=== PATIENT | female | born 1960 | race Caucasian/White ===

== ENCOUNTER 2023-12-11 10:08 | Emergency (ER) | payer SELFPAY ==
[2023-12-11 10:11] VITALS: BP 146/71; PULSE 74; RESP 20; TEMP 36.6; O2SAT 91; BMI 50.4
--- NOTE | 2023-12-11 10:24 | W.ED.WOUNDLC ---
HPI - Wound/Laceration General: Chief Complaint: Wound/Laceration Stated Complaint: left leg lac Time Seen by Provider: 12/11/23 10:09 History of Present Illness: This patient is a 63-year-old white female who presents to the emergency department after sustaining a laceration to her left benavidez. Patient states she bumped this on a TV stand this morning. She is on Eliquis. The wound did bleed quite a bit but has stopped now. No other injuries. Related Data Home Medications Medication Instructions Recorded Confirmed albuterol sulfate 90 mcg/actuation 1 puff inhalation Q4H PRN copd 12/11/23 12/11/23 aerosol inhaler apixaban 2.5 mg tablet (Eliquis) 2.5 mg PO BID 12/11/23 12/11/23 dulaglutide 4.5 mg/0.5 mL 4.5 mg SUBCUT Q7D 12/11/23 12/11/23 subcutaneous pen injector (Rochelle) duloxetine 60 mg capsule,delayed 100 mg PO DAILY 12/11/23 12/11/23 release sprinkle fluticasone furoate 100 1 inh inhalation DAILY 12/11/23 12/11/23 mcg-vilanterol 25 mcg/dose inhalation powder (Breo Ellipta) furosemide 20 mg tablet 20 mg PO DAILY 12/11/23 12/11/23 lisdexamfetamine 50 mg capsule 50 mg PO DAILY 12/11/23 12/11/23 (Vyvanse) losartan 100 mg tablet 100 mg PO DAILY 12/11/23 12/11/23 morphine 15 mg immediate release 15 mg PO TID PRN Pain 12/11/23 12/11/23 tablet omeprazole 40 mg capsule,delayed 40 mg PO DAILY 12/11/23 12/11/23 release pramipexole 1 mg tablet 1.5 mg PO DAILY 12/11/23 12/11/23 rosuvastatin 10 mg tablet 10 mg PO DAILY 12/11/23 12/11/23 tirzepatide 10 mg/0.5 mL 10 mg SUBCUT Q7D 12/11/23 12/11/23 subcutaneous pen injector (Sarahi) topiramate 100 mg tablet 100 mg PO DAILY 12/11/23 12/11/23 Review of Systems General: Reports: 10 or more systems reviewed and unremarkable except in HPI and below Skin/Breast: Reports: other (Laceration left benavidez) Physical Exam Const: COMMON NORMALS: no acute distress, patient oriented x3 and no limitations GENERAL APPEARANCE: cooperative and comfortable HENMT: COMMON NORMALS: normocephalic, atraumatic, Normal nasal mucous membranes and turbinates present, moist oral mucous membranes and oropharynx normal HEAD & SCALP: normal to inspection, normocephalic and atraumatic FACE & SINUS: normal facial exam NOSE: Normal nasal mucous membranes and turbinates present Eye: COMMON NORMALS: Equal, round and reactive pupils present, EOMs intact bilaterally and conjunctivae normal GENERAL EYE: appearance normal, both eyes and all related structures CONJUNCTIVA: Yes conjunctivae normal PUPIL: Yes Equal, round and reactive pupils present Neck/C-Spine: COMMON NORMALS: supple and no JVD Chest: COMMONS NORMALS: normal inspection of the chest Resp: COMMON NORMALS: normal respiratory effort and clear to auscultation bilaterally AUSCULTATION: clear to auscultation bilaterally Cardio: COMMON NORMALS: no JVD, regular rate, regular rhythm, No gallops present (Cardio), No murmurs present (Cardio) and No rub (Cardio) RATE: regular rate RHYTHM: regular rhythm GI: COMMON NORMALS: Normal to inspection, nondistended, normoactive bowel sounds present, Soft to palpation and non-tender AUSCULTATION: Yes normoactive bowel sounds PALPATION: Yes Soft to palpation : COMMON NORMALS: Yes no CVA tenderness BLADDER/KIDNEY EXAM: Yes no CVA tenderness Back/Pelvis: COMMON NORMALS: no CVA tenderness and thoracic and lumbar spine normal to inspection Extremity: COMMON NORMALS: normal to inspection Neuro: COMMON NORMALS: patient oriented x3 and CN's II-XII intact bilaterally Psych: COMMON NORMALS: mental status grossly normal, Normal thought process present and cooperative THOUGHT PROCESS: Normal thought process present Skin: COMMON NORMALS: no rashes or lesions noted, turgor normal and no jaundice GENERAL SKIN EXAM: no rashes or lesions noted and turgor normal TRAUMA: laceration (Approximately 3 cm laceration mid left benavidez.) Procedures Laceration Laceration 1: Site: lower extremity (Left benavidez) Size (cm): 3 Description: linear Depth: simple, single layer Local Anesthetic: lidocaine 1% Amount of anesthesia used (mL): 5 Pre-repair: wound explored and irrigated extensively Skin layer closed with: nylon Size (cm): other (2-0) Number of sutures: 1 Technique: running Course Vital Signs: Vital signs: Vital Signs Temperature 97.9 F 12/11/23 10:11 Pulse Rate 74 12/11/23 10:11 Respiratory Rate 20 H 12/11/23 10:11 Blood Pressure 146/71 12/11/23 10:11 Pulse Oximetry 91 12/11/23 10:11 MDM - Wound/Laceration Medical Decision Making Patient had developed some cramping in the left calf during the procedure. We tried to stretch that out but she continued to have pain so we did administer morphine. The wound was cleaned and dressed with antibiotic ointment by nursing staff. Patient states she is on a cephalosporin antibiotic currently. She was discharged in stable condition instructed to follow-up with her primary care physician in 10 days for recheck and suture removal. No radiology studies performed this visit Discharge Plan Discharge Patient Disposition: Home Clinical Impression: Laceration Condition: Stable Prescriptions: No Action pramipexole 1 mg Tablet 1.5 mg PO DAILY omeprazole 40 mg Capsule,Delayed Release(Dr/Ec) 40 mg PO DAILY furosemide 20 mg Tablet 20 mg PO DAILY morphine 15 mg Tablet 15 mg PO TID PRN (Reason: Pain) topiramate 100 mg Tablet 100 mg PO DAILY losartan 100 mg Tablet 100 mg PO DAILY rosuvastatin 10 mg Tablet 10 mg PO DAILY lisdexamfetamine [Vyvanse] 50 mg Capsule 50 mg PO DAILY duloxetine 60 mg Capsule, Delayed Rel Sprinkle 100 mg PO DAILY Trulicity 4.5 mg/0.5 mL Pen Injector 4.5 mg SUBCUT Q7D Mounjaro 10 mg/0.5 mL Pen Injector 10 mg SUBCUT Q7D Discharge Orders: Discharge ED (Routine); Ordered 12/11/23 Ordered By: Salvador Reyes Patient Instructions: Laceration Activity Restrictions/Additional Instructions: Follow-up with your primary care physician in 10 days for recheck and suture removal. Coding Level of Care Code ED Airport Duty Manager for Juan Manuel Horne
--- NOTE | 2023-12-11 10:31 | PC.PHAR ---
Addendum entered by Vida Peck 12/11/23 11:04: Verified with [facility] [phone], their current med list added to pt's medication list. Several medications ready at [facility] and all pts medications have been transferred over to [facility]. Original Note: no such thing as Eliquis 250mg-dosage is 2.5mg, 5mg or 10mg.
[2023-12-11] MEDS: morphine 4 mg/mL SDV 1 mL 8 MG IM (11:43)
[2023-12-11] MEDS: ondansetron 4 MG Tablet PO (11:43)
[2023-12-11 12:07] VITALS: BP 141/68; PULSE 75; O2SAT 98
== END 2023-12-11 12:08 | disposition home or self-care (01) ==
PROVIDERS: Emergency Provider Emergency Medicine
DX: S81.812A Laceration without foreign body, left lower leg, initial encounter (principal); X58.XXXA Exposure to other specified factors, initial encounter; Z79.85 Long-term (current) use of injectable non-insulin antidiabetic drugs
CPT/HCPCS: 12002; 96372; 99284; J2270; Q0162

== ENCOUNTER 2024-01-03 13:39 | Emergency (ER) | payer MEDICARE, MEDICAID, SELFPAY ==
[2024-01-03 14:13] VITALS: BP 190/81; PULSE 81; RESP 18; TEMP 36.7; O2SAT 97; BMI 49.6
--- NOTE | 2024-01-03 14:50 | ED_ITS ---
HPI - Back Pain/Injury General: Chief Complaint: Back Pain/Injury Stated Complaint: left knee/low back pain Time Seen by Provider: 01/03/24 14:32 Source: patient Mode of arrival: ambulatory Limitations: no limitations History of Present Illness: Patient is a 63-year-old female presents to ED today requesting a refill of chronic pain medication. She states she is having pain everywhere . States she suffers from chronic lower back pain as well as pain in her left leg from multiple previous surgeries. Patient states she was under the care of a airbrush painter in [place]. She states she recently moved to the area in October. She states she has tried to get a primary care appointment but the soonest they can get her in was at the end of January. She does have an appointment scheduled with Dr. Hanna then. She states she has also had a referral placed to [place] [facility]. She states she was at their office today as she was trying to get all of her records faxed to them. They told her it would take a few weeks to get back with her and to schedule her for an appointment. Patient states she is on [facility] walk-in clinic a few weeks ago for pain management refill. She states she is frustrated as the provider told her they were going to give her 30 tablets of 15mg morphine with directions for 2 a day so should last her 2 weeks. She states when she got to the pharmacy there were only 14 tablets to fill. She states she has been taking one tablet daily but now she is out. elicited complaint: other (chronic pain) Onset (ago): year(s) Timing: constant Severity: severe Similar Symptoms Previously: Yes Radiation: none Relieving factors: other (her chronic pain medication) Associated symptoms: Reports no associated symptoms; Deny abdominal pain or vomiting Work related injury: No Related Data Home Medications Medication Instructions Recorded Confirmed albuterol sulfate 90 mcg/actuation 1 puff inhalation Q4H PRN copd 12/11/23 01/03/24 aerosol inhaler apixaban 2.5 mg tablet (Eliquis) 2.5 mg PO BID 12/11/23 01/03/24 dulaglutide 4.5 mg/0.5 mL 4.5 mg SUBCUT Q7D 12/11/23 01/03/24 subcutaneous pen injector ([facility]) duloxetine 60 mg capsule,delayed 100 mg PO DAILY 12/11/23 01/03/24 release sprinkle fluticasone furoate 100 1 inh inhalation DAILY 12/11/23 01/03/24 mcg-vilanterol 25 mcg/dose inhalation powder (Breo Ellipta) furosemide 20 mg tablet 20 mg PO DAILY 12/11/23 01/03/24 lisdexamfetamine 50 mg capsule 50 mg PO DAILY 12/11/23 01/03/24 (Vyvanse) losartan 100 mg tablet 100 mg PO DAILY 12/11/23 01/03/24 omeprazole 40 mg capsule,delayed 40 mg PO DAILY 12/11/23 01/03/24 release pramipexole 1 mg tablet 1.5 mg PO DAILY 12/11/23 01/03/24 rosuvastatin 10 mg tablet 10 mg PO DAILY 12/11/23 01/03/24 tirzepatide 10 mg/0.5 mL 10 mg SUBCUT Q7D 12/11/23 01/03/24 subcutaneous pen injector (Sarahi) topiramate 100 mg tablet 100 mg PO DAILY 12/11/23 01/03/24 Previous Rx's Medication Instructions Recorded DME: Walker #1 ea 12/16/23 morphine 15 mg immediate release 15 mg PO DAILY PRN Pain #10 tabs 01/03/24 tablet Allergies Allergy/AdvReac Type Severity Reaction Status Date / Time acetaminophen [From Tylenol] Allergy Unknown Verified 01/03/24 14:24 divalproex sodium Allergy Unknown Verified 01/03/24 14:24 [From Depakote] oxycodone Allergy Unknown Verified 01/03/24 14:24 Sulfa (Sulfonamide Allergy ALGY-Hives Verified 01/03/24 14:24 Antibiotics) tobramycin [From Tobrex] Allergy Unknown Verified 01/03/24 14:24 Review of Systems Card: Denies: chest pain Resp: Denies: dyspnea GI: Denies: abdominal pain or vomiting Musc: Reports: back pain (chronic) and joint pain (chronic) Neuro: Denies: headache(s) PFSH ED PFSH: Social History Smoking and tobacco/nicotine status: never used tobacco/nicotine Physical Exam Const: COMMON NORMALS: no acute distress, patient oriented x3, no limitations and alert GENERAL APPEARANCE: cooperative NUTRITIONAL APPEARANCE: obese morbidly obese Resp: COMMON NORMALS: normal respiratory effort and clear to auscultation bilaterally AUSCULTATION: clear to auscultation bilaterally Cardio: COMMON NORMALS: regular rate and regular rhythm RATE: regular rate RHYTHM: regular rhythm Neuro: COMMON NORMALS: patient oriented x3 SENSORIUM/ORIENTATION: Yes alert Course Vital Signs: Vital signs: Vital Signs Temperature 98.1 F 01/03/24 14:13 Pulse Rate 74 01/03/24 15:02 Respiratory Rate 26 H 01/03/24 14:57 Blood Pressure 125/81 01/03/24 15:02 Pulse Oximetry 91 01/03/24 15:02 Oxygen Delivery Me thod Room Air 01/03/24 14:13 MDM - Back Pain/Injury Medical Decision Making Patient has no new physical complaints at this time. She is requesting refill of her chronic opiate pain medication. I did review Dr. Medina's note and it did state he was going to prescribe her 30 tablets of her 15mg morphine. I did check with our pharmacy staff who verified she only got 14 tablets consistent with the history she provided today. She was able to make these 14 tablets last from 12/14 until today 01/02. I told her we will give her a small amount of medications-enough to continue to take one daily x 10 days and that should give her time to continue to follow up with [facility] to see if she can get an appointment with them or even get on a cancellation list with Dr. Hanna's office. Dr. Medina's note also had instructions for re-evaluation/possible refills. Told her we would not refill additional pain medication from the emergency department. Case discussed with Dr. Moon who agrees with care plan and signed prescription. Medical Records I reviewed the patient's medical records. No radiology studies performed this visit Discharge Plan Discharge Patient Disposition: Home Clinical Impression: Opioid use, Chronic pain Condition: Stable Prescriptions: Changed morphine 15 mg tablet 15 mg PO DAILY PRN (Reason: Pain) Qty: 10 0RF No Action (DME) DME: Walker Unit See Rx Instructions .Route Qty: 1 0RF Rx Instructions: As directed pramipexole 1 mg Tablet 1.5 mg PO DAILY omeprazole 40 mg Capsule,Delayed Release(Dr/Ec) 40 mg PO DAILY furosemide 20 mg Tablet 20 mg PO DAILY topiramate 100 mg Tablet 100 mg PO DAILY losartan 100 mg Tablet 100 mg PO DAILY rosuvastatin 10 mg Tablet 10 mg PO DAILY lisdexamfetamine [Vyvanse] 50 mg Capsule 50 mg PO DAILY duloxetine 60 mg Capsule, Delayed Rel Sprinkle 100 mg PO DAILY Trulicity 4.5 mg/0.5 mL Pen Injector 4.5 mg SUBCUT Q7D Mounjaro 10 mg/0.5 mL Pen Injector 10 mg SUBCUT Q7D albuterol sulfate [ProAir HFA] 90 mcg/actuation Hfa Aerosol Inhaler 1 puff INHALATION Q4H PRN (Reason: copd) Eliquis 2.5 mg Tablet 2.5 mg PO BID fluticasone furoate-vilanterol [Breo Ellipta] 100-25 mcg/dose Blister With Device 1 inh INHALATION DAILY Discharge Orders: Discharge ED (Routine); Ordered 01/03/24 Ordered By: Nissa Garcia Referrals: Cindy Zhao MD [Primary Care Provider] - Patient Instructions: Opioid Safety, Pain Management Activity Restrictions/Additional Instructions: As we discussed, I would contact Dr. Hanna's office and try to get on a cancellation list for sooner appointment. Also continue to follow-up with [place] [facility] to try to obtain an appointment. No further pain medications will be provided through the emergency department. Coding Level of Care Code ED Manufacturing Lead for Juan Manuel Horne
[2024-01-03 14:57] VITALS: RESP 26; O2SAT 99
[2024-01-03] MEDS: morphine 4 mg/mL SDV 1 mL IM (14:57)
[2024-01-03 15:02] VITALS: BP 125/81; PULSE 74; O2SAT 91
== END 2024-01-03 15:03 | disposition home or self-care (01) ==
PROVIDERS: Emergency Provider Physician Assistant; PCP Family Medicine
DX: F11.90 Opioid use, unspecified, uncomplicated (principal); Z79.01 Long term (current) use of anticoagulants
CPT/HCPCS: 96372; 99284; J2270

== ENCOUNTER 2024-01-05 14:12 | Emergency (ER) | payer MEDICARE, MEDICAID, SELFPAY ==
--- NOTE | 2024-01-05 14:13 | XRR_ITS ---
PROCEDURE INFORMATION: Exam: XR Left Shoulder Exam date and time: 01/05/2024 2:15 PM Age: 63 years old Clinical indication: Pain; Shoulder; Left TECHNIQUE: Imaging protocol: Radiologic exam of the left shoulder. Views: 2 or more views. COMPARISON: No relevant prior studies available. FINDINGS: Bones/joints: 2.9 cm widening of the acromioclavicular interval. No acutely displaced fractures. No joint dislocation. No aggressive osseous lesions. Soft tissues: No acute soft tissue findings. No acute findings in the included segments of the chest. XR/XR shoulder LT min 2V* 02999 IMPRESSION: 2.9 cm widening of the acromioclavicular interval. 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 Differential would include sequela of prior acromioclavicular injury.
--- NOTE | 2024-01-05 14:16 | W.ED.UPPEXIN ---
HPI - Extremity Injury (Upper) General: Chief Complaint: Extremity Injury, Upper Stated Complaint: left shoulder pain Time Seen by Provider: 01/05/24 14:13 Source: patient and EMS Mode of arrival: EMS Limitations: no limitations History of Present Illness: 63-year-old female who states that she had shoulder door prior arrival and fell like she may have dislocated her left shoulder she states she has had multiple shoulder dislocations in the past have shoulder pain she rates a 8 out of 10 received fentanyl and route. Denies pain elsewhere Associated symptoms: Denies neck pain Related Data Home Medications Medication Instructions Recorded Confirmed albuterol sulfate 90 mcg/actuation 1 puff inhalation Q4H PRN copd 12/11/23 01/03/24 aerosol inhaler apixaban 2.5 mg tablet (Eliquis) 2.5 mg PO BID 12/11/23 01/03/24 dulaglutide 4.5 mg/0.5 mL 4.5 mg SUBCUT Q7D 12/11/23 01/03/24 subcutaneous pen injector (Rochelle) duloxetine 60 mg capsule,delayed 100 mg PO DAILY 12/11/23 01/03/24 release sprinkle fluticasone furoate 100 1 inh inhalation DAILY 12/11/23 01/03/24 mcg-vilanterol 25 mcg/dose inhalation powder (Breo Ellipta) furosemide 20 mg tablet 20 mg PO DAILY 12/11/23 01/03/24 lisdexamfetamine 50 mg capsule 50 mg PO DAILY 12/11/23 01/03/24 (Vyvanse) losartan 100 mg tablet 100 mg PO DAILY 12/11/23 01/03/24 omeprazole 40 mg capsule,delayed 40 mg PO DAILY 12/11/23 01/03/24 release pramipexole 1 mg tablet 1.5 mg PO DAILY 12/11/23 01/03/24 rosuvastatin 10 mg tablet 10 mg PO DAILY 12/11/23 01/03/24 tirzepatide 10 mg/0.5 mL 10 mg SUBCUT Q7D 12/11/23 01/03/24 subcutaneous pen injector (Sarahi) topiramate 100 mg tablet 100 mg PO DAILY 12/11/23 01/03/24 Previous Rx's Medication Instructions Recorded DME: Walker #1 ea 12/16/23 morphine 15 mg immediate release 15 mg PO DAILY PRN Pain #10 tabs 01/03/24 tablet Allergies Allergy/AdvReac Type Severity Reaction Status Date / Time acetaminophen [From Tylenol] Allergy Unknown Verified 01/05/24 14:22 divalproex sodium Allergy Unknown Verified 01/05/24 14:22 [From Depakote] oxycodone Allergy Unknown Verified 01/05/24 14:22 tobramycin [From Tobrex] Allergy Unknown Verified 01/05/24 14:22 Review of Systems Const: Denies: fever(s), chills, body aches or change in appetite Card: Denies: chest pain Resp: Denies: dyspnea GI: Denies: abdominal pain, nausea, vomiting or diarrhea Musc: Reports: extremity pain; Denies: neck pain or back pain Skin/Breast: Denies: rash Neuro: Denies: headache(s) PFSH ED PFSH: Social History Smoking and tobacco/nicotine status: never used tobacco/nicotine Physical Exam Const: COMMON NORMALS: no acute distress, patient oriented x3 and healthy appearing HENMT: COMMON NORMALS: normocephalic and atraumatic HEAD & SCALP: normocephalic and atraumatic Eye: COMMON NORMALS: conjunctivae normal CONJUNCTIVA: Yes conjunctivae normal Neck/C-Spine: COMMON NORMALS: full ROM and supple Chest: COMMONS NORMALS: normal inspection of the chest Resp: COMMON NORMALS: normal respiratory effort Extremity: NARRATIVE EXTREMITY EXAM: Tenderness over left shoulder some pain with range of motion Neuro: COMMON NORMALS: patient oriented x3, moves all extremities and no focal motor deficits Psych: COMMON NORMALS: mental status grossly normal, Normal thought process present and cooperative THOUGHT PROCESS: Normal thought process present Skin: COMMON NORMALS: no rashes or lesions noted and no wounds GENERAL SKIN EXAM: no rashes or lesions noted Course Vital Signs: Vital signs: Vital Signs Temperature 97.7 F 01/05/24 14:17 Pulse Rate 77 01/05/24 14:17 Respiratory Rate 18 01/05/24 14:21 Blood Pressure 176/100 01/05/24 14:21 Pulse Oximetry 96 01/05/24 14:21 Oxygen Delivery Me thod Room Air 01/05/24 14:17 MDM - Extremity Injury (Upper) Medical Decision Making Patient presents with left shoulder sprain x-ray shows no fracture or dislocation we will get her follow-up with orthopedics she is stable for discharge return if worsening. Medical Records I reviewed the patient's medical records. Lab Data Radiology Impressions Shoulder X-Ray 01/05/24 14:13 IMPRESSION: 2.9 cm widening of the acromioclavicular interval. 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 Differential would include sequela of prior acromioclavicular injury. All radiology interpretation(s) finalized by discharge Discharge Plan Discharge Patient Disposition: Home Clinical Impression: Sprain of left shoulder, Fracture of wrist Condition: Stable Prescriptions: No Action (DME) DME: Walker Unit See Rx Instructions .Route Qty: 1 0RF Rx Instructions: As directed morphine 15 mg tablet 15 mg PO DAILY PRN (Reason: Pain) Qty: 10 0RF pramipexole 1 mg Tablet 1.5 mg PO DAILY omeprazole 40 mg Capsule,Delayed Release(Dr/Ec) 40 mg PO DAILY furosemide 20 mg Tablet 20 mg PO DAILY topiramate 100 mg Tablet 100 mg PO DAILY losartan 100 mg Tablet 100 mg PO DAILY rosuvastatin 10 mg Tablet 10 mg PO DAILY lisdexamfetamine [Vyvanse] 50 mg Capsule 50 mg PO DAILY duloxetine 60 mg Capsule, Delayed Rel Sprinkle 100 mg PO DAILY Trulicity 4.5 mg/0.5 mL Pen Injector 4.5 mg SUBCUT Q7D Mounjaro 10 mg/0.5 mL Pen Injector 10 mg SUBCUT Q7D albuterol sulfate [ProAir HFA] 90 mcg/actuation Hfa Aerosol Inhaler 1 puff INHALATION Q4H PRN (Reason: copd) Eliquis 2.5 mg Tablet 2.5 mg PO BID fluticasone furoate-vilanterol [Breo Ellipta] 100-25 mcg/dose Blister With Device 1 inh INHALATION DAILY Discharge Orders: Discharge ED (Routine); Ordered 01/05/24 Ordered By: Rimma Moon Referrals: Vahid Zamarripa DO [Physician] - 4-7 days Cindy Zhao MD [Primary Care Provider] - Discharge Diet: Advance as tolerated Discharge Activity: Resume usual activity Patient Instructions: Shoulder Sprain (ED) Coding Level of Care Code ED Stitchdown Thread Laster for Juan Manuel Horne
[2024-01-05 14:17] VITALS: BP 172/88; PULSE 77; RESP 18; TEMP 36.5; O2SAT 97
[2024-01-05 14:21] VITALS: BP 176/100; RESP 18; O2SAT 96
[2024-01-05 14:54] VITALS: BP 173/101; PULSE 80; RESP 18; O2SAT 95
--- NOTE | 2024-01-05 21:50 | DCPLANNER ---
messaged ortho for er f/u
== END 2024-01-05 14:55 | disposition home or self-care (01) ==
PROVIDERS: Emergency Provider Emergency Medicine; PCP Family Medicine
DX: S43.402A Unspecified sprain of left shoulder joint, initial encounter (principal); S62.109A Fracture of unspecified carpal bone, unspecified wrist, initial encounter for closed fracture; X58.XXXA Exposure to other specified factors, initial encounter
CPT/HCPCS: 73030; 99283

== ENCOUNTER → 2024-02-23 10:38 | Outpatient (BNVA) | payer OTHER, MEDICARE, MEDICAID, SELFPAY | PROVIDERS: PCP Family Medicine; Visit Provider Family Medicine | DX: L97.929 Non-pressure chronic ulcer of unspecified part of left lower leg with unspecified severity (principal); E11.9 Type 2 diabetes mellitus without complications; I10 Essential (primary) hypertension; E78.00 Pure hypercholesterolemia, unspecified; Z79.01 Long term (current) use of anticoagulants; K21.00 Gastro-esophageal reflux disease with esophagitis, without bleeding; M79.7 Fibromyalgia; J44.9 Chronic obstructive pulmonary disease, unspecified; R30.0 Dysuria; F31.62 Bipolar disorder, current episode mixed, moderate; F90.2 Attention-deficit hyperactivity disorder, combined type; Z79.4 Long term (current) use of insulin; Z86.718 Personal history of other venous thrombosis and embolism | CPT/HCPCS: 80053; 80061; 82043; 83036; 84443; 85025; 87086 ==

== ENCOUNTER → 2024-03-06 08:42 | Outpatient (BNVA) | payer MEDICARE, OTHER, MEDICAID, SELFPAY | PROVIDERS: PCP Family Medicine; Visit Provider Thoracic Surgery (Cardiothoracic Vascular Surgery) | DX: I96 Gangrene, not elsewhere classified (principal); S81.802A Unspecified open wound, left lower leg, initial encounter; W22.8XXA Striking against or struck by other objects, initial encounter | CPT/HCPCS: 11042; 99203; A6212 ==

== ENCOUNTER → 2024-05-17 12:05 | Outpatient (BNVA) | payer MEDICARE, MEDICAID, SELFPAY | PROVIDERS: PCP Family Medicine; Visit Provider Family Medicine | DX: Z79.4 Long term (current) use of insulin (principal); E11.65 Type 2 diabetes mellitus with hyperglycemia | CPT/HCPCS: 83036 ==

== ENCOUNTER 2024-06-24 05:19 | Emergency (ER) | payer OTHER, MEDICAID, SELFPAY ==
[2024-06-24 05:24] VITALS: BP 123/68; PULSE 75; RESP 16; TEMP 36.3; O2SAT 94; BMI 49.1
--- NOTE | 2024-06-24 06:10 | W.ED.EXTPRO ---
HPI - Extremity Problem General: Chief complaint: Extremity Problem,Nontraumatic Stated complaint: left leg hot swollen Time Seen by Provider: 06/24/24 05:46 Source: patient Mode of arrival: ambulatory Limitations: no limitations History of Present Illness: 54-year-old female states she noticed an abscess to her left knee she states it has been painful slightly warm to touch she denies any fevers denies any drainage denies any worsening provide factors Associated symptoms: Deny chest pain, fever(s) or rash Related Data Home Medications ?Medication ?Instructions ?Recorded ?Confirmed albuterol sulfate 90 mcg/actuation 1 puff inhalation Q4H PRN copd 12/11/23 05/17/24 aerosol inhaler furosemide 20 mg tablet 20 mg PO DAILY 12/11/23 05/17/24 morphine 15 mg immediate release 15 mg PO TID Pain 02/23/24 05/17/24 tablet Previous Rx's ?Medication ?Instructions ?Recorded DME: Ramon #1 ea 12/16/23 apixaban 2.5 mg tablet (Eliquis) 2.5 mg PO BID #180 tabs 02/23/24 duloxetine 60 mg capsule,delayed 120 mg (2 x 60 mg) PO DAILY #180 02/23/24 release sprinkle caps fluticasone furoate 100 1 inh inhalation DAILY #180 ea 02/23/24 mcg-vilanterol 25 mcg/dose inhalation powder (Breo Ellipta) insulin glargine 100 unit/mL (3 36 unit (0.36 mL) SUBCUT DAILY #45 02/23/24 mL) subcutaneous pen (Basaglar mL KwikPen U-100 Insulin) Held on 05/17/24. Instructions: Doctor's Order losartan 100 mg tablet 100 mg PO DAILY #90 tabs 02/23/24 omeprazole 40 mg capsule,delayed 40 mg PO DAILY #90 caps 02/23/24 release pramipexole 1 mg tablet 1.5 mg (1.5 x 1 mg) PO DAILY #135 02/23/24 tabs rosuvastatin 10 mg tablet 10 mg PO DAILY #90 tabs 02/23/24 topiramate 100 mg tablet 100 mg PO DAILY #90 tabs 02/23/24 tirzepatide 15 mg/0.5 mL 15 mg (0.5 mL) SUBCUT .qw #2 mL 05/17/24 subcutaneous pen injector (Mounrobbro) blood-glucose sensor (Dexcom G7 #9 ea 05/22/24 Sensor device) lisdexamfetamine 50 mg capsule 50 mg PO DAILY 30 days #30 caps 06/15/24 (Vyvanse) pen needle, diabetic 31 gauge x #100 ea 06/20/24 5/16 sulfamethoxazole 800 1 tab PO BID 10 days #20 tabs 06/24/24 mg-trimethoprim 160 mg tablet (Bactrim DS) Allergies Allergy/AdvReac Type Severity Reaction Status Date / Time acetaminophen (From Tylenol) Allergy Unknown Verified 05/17/24 11:32 divalproex sodium (From Allergy Unknown Verified 05/17/24 11:32 Depakote) lamotrigine Allergy ALGY-Bliste Verified 06/24/24 05:32 r oxycodone Allergy Unknown Verified 05/17/24 11:32 tobramycin (From Tobrex) Allergy Unknown Verified 05/17/24 11:32 Review of Systems Const: Denies: fever(s), chills, body aches or change in appetite ENMT: Denies: throat pain or dental pain Card: Denies: chest pain Resp: Denies: dyspnea GI: Denies: abdominal pain, nausea, vomiting or diarrhea Musc: Denies: neck pain or back pain Skin/Breast: Denies: rash Neuro: Denies: headache(s) PFSH ED PFSH: Medical History Screening for lung cancer [place]; next due one year Osteoarthritis 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 Neuropathy ADHD (attention deficit hyperactivity disorder) History of recurrent deep vein thrombosis has hx of 2 Chronic anticoagulation eliquis for recurrent DVTs Chronic ulcer of left leg GERD with esophagitis COPD (chronic obstructive pulmonary disease) Hypertension Hypercholesterolemia Bipolar disorder Nicotine dependence, cigarettes, uncomplicated Type 2 diabetes mellitus Fibromyalgia Surgical History Hx of vein stripping Left leg vein stripped and glued History of shoulder surgery left Hx of colonoscopy History of knee replacement L knee has been replaced 2 times 01/25--got infected and subsequently had multiple knee surgeries and total of 3 replacements H/O sinus surgery x2 Hx of hysterectomy age 37; with RSO and few years later had LSO--no cancer; H/O tubal ligation Family History Father No problems noted. Mother Cancer Diabetes mellitus, type 2 Social History Smoking and tobacco/nicotine status: current every day tobacco/nicotine user cigarettes Packs smoked per day: 0.5 Alcohol intake: current Alcohol intake frequency: holidays/special occasions only Alcohol type: other Substance/Drug Use: current Substance/Drug use frequency: few times a month Household members: none Marital status: Number of children: 4 Highest education level completed: GED or Equivalent Previous occupational history: worked at [employer], [employer], other jobs; disability for fibromyalgia Physical Exam Const: COMMON NORMALS: no acute distress, patient oriented x3 and healthy appearing HENMT: COMMON NORMALS: normocephalic and atraumatic HEAD & SCALP: normocephalic and atraumatic Neck/C-Spine: COMMON NORMALS: full ROM and supple Chest: COMMONS NORMALS: normal inspection of the chest Resp: COMMON NORMALS: normal respiratory effort Cardio: COMMON NORMALS: regular rate RATE: regular rate Extremity: NARRATIVE EXTREMITY EXAM: 3cm abscess to left knee no warmth to knee no signs of septic joint Neuro: COMMON NORMALS: patient oriented x3, moves all extremities and no focal motor deficits Psych: COMMON NORMALS: mental status grossly normal, Normal thought process present and cooperative THOUGHT PROCESS: Normal thought process present Skin: COMMON NORMALS: no rashes or lesions noted and no wounds GENERAL SKIN EXAM: no rashes or lesions noted Procedures Abscess I/D Site: lower extremity Side (if applicable): left Local Anesthetic: lidocaine 1% Amount of anesthesia used (mL): 6 Technique: incised with #11 blade Irrigation: No Course Vital Signs: Vital signs: Vital Signs Temperature 97.4 F L 06/24/24 05:24 Pulse Rate 75 06/24/24 05:24 Respiratory Rate 16 06/24/24 05:24 Blood Pressure 123/68 06/24/24 05:24 Pulse Oximetry 94 06/24/24 05:24 Oxygen Delivery Me thod Room Air 06/24/24 05:24 MDM - Extremity (Nontraumatic) Medical Decision Making Patient presents with abscess to her left knee did incise and drain the abscess no signs of septic joint will start on Bactrim follow-up PCP return for worsening No radiology studies performed this visit Discharge Plan Discharge Patient Disposition: Home Clinical Impression: Abscess Condition: Stable Prescriptions: New sulfamethoxazole-trimethoprim [Bactrim DS] 800-160 mg tablet 1 tab PO BID 10 Days Qty: 20 0RF No Action morphine 15 mg tablet 15 mg PO TID fluticasone furoate-vilanterol [Breo Ellipta] 100-25 mcg/dose blister with device 1 inh INHALATION DAILY Qty: 180 1RF duloxetine 60 mg capsule, delayed rel sprinkle 120 mg PO DAILY Qty: 180 1RF topiramate 100 mg tablet 100 mg PO DAILY Qty: 90 1RF insulin glargine [Basaglar KwikPen U-100 Insulin] 100 unit/mL (3 mL) insulin pen 36 unit SUBCUT DAILY Qty: 45 1RF Eliquis 2.5 mg tablet 2.5 mg PO BID Qty: 180 1RF losartan 100 mg tablet 100 mg PO DAILY Qty: 90 1RF omeprazole 40 mg capsule,delayed release(DR/EC) 40 mg PO DAILY Qty: 90 1RF pramipexole 1 mg tablet 1.5 mg PO DAILY Qty: 135 1RF rosuvastatin 10 mg tablet 10 mg PO DAILY Qty: 90 1RF Mounjaro 15 mg/0.5 mL pen injector 15 mg SUBCUT .qw Qty: 2 5RF (DME) DME: [facility] See Rx Instructions .Route Qty: 1 0RF Rx Instructions: As directed (DME) Dexcom G7 Sensor Device See Rx Instructions .Route Qty: 9 3RF Rx Instructions: As directed lisdexamfetamine [Vyvanse] 50 mg capsule 50 mg PO DAILY 30 Days Qty: 30 0RF (DME) pen needle, diabetic 31 gauge x 5/16 needle See Rx Instructions .ROUTE .COMPLEX Qty: 100 3RF Dose Instruction: USE DIRECTED Rx Instructions: USE DIRECTED furosemide 20 mg Tablet 20 mg PO DAILY albuterol sulfate [ProAir HFA] 90 mcg/actuation Hfa Aerosol Inhaler 1 puff INHALATION Q4H PRN (Reason: copd) Discharge Orders: Discharge ED (Routine); Ordered 06/24/24 Ordered By: Rimma Moon Referrals: Cindy Zhao MD [Primary Care Provider, Family Practice] Discharge Diet: Advance as tolerated Discharge Activity: Resume usual activity Patient Instructions: Abscess (ED) Print Language: Italian Coding Level of Care Code ED Coffee [employer]er for Juan Manuel Horne
== END 2024-06-24 06:51 | disposition home or self-care (01) ==
PROVIDERS: Emergency Provider Emergency Medicine; PCP Family Medicine
DX: L02.416 Cutaneous abscess of left lower limb (principal); F17.210 Nicotine dependence, cigarettes, uncomplicated; J44.9 Chronic obstructive pulmonary disease, unspecified; I10 Essential (primary) hypertension; E11.9 Type 2 diabetes mellitus without complications
CPT/HCPCS: 10060; 99283

== ENCOUNTER 2024-07-17 14:17 | Emergency (ER) | payer OTHER, MEDICAID, SELFPAY ==
[2024-07-17 14:21] VITALS: BP 179/99; PULSE 93; RESP 19; TEMP 36.6; O2SAT 93; BMI 50.5
--- NOTE | 2024-07-17 14:52 | W.ED.SKABFB ---
HPI - Skin/Abscess/Foreign Bdy General: Chief complaint: Skin/Abscess/Foreign Body Stated complaint: L leg pain, swelling, discharge Time Seen by Provider: 07/17/24 14:28 Source: patient Mode of arrival: ambulatory Limitations: no limitations History of Present Illness: Patient is a 64-year-old female presents to ED today for concerns of an abscess to her left knee. Patient states abscess was drained here approximately 3 weeks ago. She states she finished a round of Bactrim which did seem to eradicate infection. She states she was doing good until this morning when she felt like it popped back up . She is adamant we attempt repeat incision and drainage today. No systemic symptoms. MD complaint: abscess/boil Onset (ago): hour(s) Severity: mild Relieving factors: none Exacerbating factors: none Context: other (recent I&D to same area) Associated symptoms: Reports no associated symptoms; Deny fever(s) Treatments prior to arrival: none Related Data Home Medications ?Medication ?Instructions ?Recorded ?Confirmed albuterol sulfate 90 mcg/actuation 1 puff inhalation Q4H PRN copd 12/11/23 05/17/24 aerosol inhaler furosemide 20 mg tablet 20 mg PO DAILY 12/11/23 05/17/24 morphine 15 mg immediate release 15 mg PO TID Pain 02/23/24 05/17/24 tablet Previous Rx's ?Medication ?Instructions ?Recorded DME: Ramon #1 ea 12/16/23 apixaban 2.5 mg tablet (Eliquis) 2.5 mg PO BID #180 tabs 02/23/24 duloxetine 60 mg capsule,delayed 120 mg (2 x 60 mg) PO DAILY #180 02/23/24 release sprinkle caps fluticasone furoate 100 1 inh inhalation DAILY #180 ea 02/23/24 mcg-vilanterol 25 mcg/dose inhalation powder (Breo Ellipta) insulin glargine 100 unit/mL (3 36 unit (0.36 mL) SUBCUT DAILY #45 02/23/24 mL) subcutaneous pen (Basaglar mL KwikPen U-100 Insulin) Held on 05/17/24. Instructions: Doctor's Order losartan 100 mg tablet 100 mg PO DAILY #90 tabs 02/23/24 omeprazole 40 mg capsule,delayed 40 mg PO DAILY #90 caps 02/23/24 release pramipexole 1 mg tablet 1.5 mg (1.5 x 1 mg) PO DAILY #135 02/23/24 tabs rosuvastatin 10 mg tablet 10 mg PO DAILY #90 tabs 02/23/24 topiramate 100 mg tablet 100 mg PO DAILY #90 tabs 02/23/24 tirzepatide 15 mg/0.5 mL 15 mg (0.5 mL) SUBCUT .qw #2 mL 05/17/24 subcutaneous pen injector ([employer]) blood-glucose sensor (Codelearn G7 #9 ea 05/22/24 Sensor device) lisdexamfetamine 50 mg capsule 50 mg PO DAILY 30 days #30 caps 06/15/24 (Vyvanse) pen needle, diabetic 31 gauge x #100 ea 06/20/2406/22 clindamycin HCl 300 mg capsule 300 mg PO Q6H 7 days #28 caps 07/17/24 Allergies Allergy/AdvReac Type Severity Reaction Status Date / Time acetaminophen (From Tylenol) Allergy Unknown Verified 05/17/24 11:32 divalproex sodium (From Allergy Unknown Verified 05/17/24 11:32 Depakote) lamotrigine Allergy ALGY-Bliste Verified 06/24/24 05:32 r oxycodone Allergy Unknown Verified 05/17/24 11:32 tobramycin (From Tobrex) Allergy Unknown Verified 05/17/24 11:32 Review of Systems Const: Denies: fever(s) Skin/Breast: Reports: other (knee abscess) PFSH ED PFSH: Medical History Screening for lung cancer [place]; next due one year Osteoarthritis 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 Neuropathy ADHD (attention deficit hyperactivity disorder) History of recurrent deep vein thrombosis has hx of 2 Chronic anticoagulation eliquis for recurrent DVTs Chronic ulcer of left leg GERD with esophagitis COPD (chronic obstructive pulmonary disease) Hypertension Hypercholesterolemia Bipolar disorder Nicotine dependence, cigarettes, uncomplicated Type 2 diabetes mellitus Fibromyalgia Surgical History Hx of vein stripping Left leg vein stripped and glued History of shoulder surgery left Hx of colonoscopy History of knee replacement L knee has been replaced 2 times 01/25--got infected and subsequently had multiple knee surgeries and total of 3 replacements H/O sinus surgery x2 Hx of hysterectomy age 37; with RSO and few years later had LSO--no cancer; H/O tubal ligation Family History Father No problems noted. Mother Cancer Diabetes mellitus, type 2 Social History Smoking and tobacco/nicotine status: current every day tobacco/nicotine user cigarettes Packs smoked per day: 0.5 Alcohol intake: current Alcohol intake frequency: holidays/special occasions only Alcohol type: other Substance/Drug Use: current Substance/Drug use frequency: few times a month Household members: none Marital status: Number of children: 4 Highest education level completed: GED or Equivalent Previous occupational history: worked at [employer], [employer], other jobs; disability for fibromyalgia Physical Exam Const: COMMON NORMALS: no acute distress, no limitations and alert Extremity: GENERAL: Yes normal exam except as noted EXTREMITY IMAGE (FRONT):  1. very small primarily indurated area to superior L knee w/o obvious fluctuance; no streaking or surrounding cellulitis; underlying scar tissue given previous surgical incision to this area Neuro: COMMON NORMALS: moves all extremities, no focal motor deficits and no sensory deficits noted SENSORIUM/ORIENTATION: Yes alert Course Vital Signs: Vital signs: Vital Signs Temperature 98 F 07/17/24 14:21 Pulse Rate 93 07/17/24 14:21 Respiratory Rate 19 H 07/17/24 14:21 Blood Pressure 179/99 07/17/24 14:21 Pulse Oximetry 93 07/17/24 14:21 Oxygen Delivery Me thod Room Air 07/17/24 14:21 MDM - Skin/Abscess/Foreign Bdy Medicial Decision Making Patient was adamant we attempt repeat incision and drainage. Clinically I did not appreciate any obvious fluctuance to the area. Did go ahead and make very small alex to the area and probed-expressed about 3 drops of purulent material-possibly enough for a culture. Patient seemed satisfied with this. Will place her on oral antibiotics. Recommend follow-up with primary care. Medical Records I reviewed the patient's medical records. No radiology studies performed this visit Discharge Plan Discharge Patient Disposition: Home Clinical Impression: Abscess Condition: Stable Prescriptions: New clindamycin HCl 300 mg capsule 300 mg PO Q6H 7 Days Qty: 28 0RF No Action morphine 15 mg tablet 15 mg PO TID fluticasone furoate-vilanterol [Breo Ellipta] 100-25 mcg/dose blister with device 1 inh INHALATION DAILY Qty: 180 1RF duloxetine 60 mg capsule, delayed rel sprinkle 120 mg PO DAILY Qty: 180 1RF topiramate 100 mg tablet 100 mg PO DAILY Qty: 90 1RF insulin glargine [Basaglar KwikPen U-100 Insulin] 100 unit/mL (3 mL) insulin pen 36 unit SUBCUT DAILY Qty: 45 1RF Eliquis 2.5 mg tablet 2.5 mg PO BID Qty: 180 1RF losartan 100 mg tablet 100 mg PO DAILY Qty: 90 1RF omeprazole 40 mg capsule,delayed release(DR/EC) 40 mg PO DAILY Qty: 90 1RF pramipexole 1 mg tablet 1.5 mg PO DAILY Qty: 135 1RF rosuvastatin 10 mg tablet 10 mg PO DAILY Qty: 90 1RF Mounjaro 15 mg/0.5 mL pen injector 15 mg SUBCUT .qw Qty: 2 5RF (DME) DME: [facility] See Rx Instructions .Route Qty: 1 0RF Rx Instructions: As directed (DME) Dexcom G7 Sensor Device See Rx Instructions .Route Qty: 9 3RF Rx Instructions: As directed lisdexamfetamine [Vyvanse] 50 mg capsule 50 mg PO DAILY 30 Days Qty: 30 0RF (DME) pen needle, diabetic 31 gauge x 5/16 needle See Rx Instructions .ROUTE .COMPLEX Qty: 100 3RF Dose Instruction: USE DIRECTED Rx Instructions: USE DIRECTED furosemide 20 mg Tablet 20 mg PO DAILY albuterol sulfate [ProAir HFA] 90 mcg/actuation Hfa Aerosol Inhaler 1 puff INHALATION Q4H PRN (Reason: copd) Discharge Orders: Discharge ED (Routine); Ordered 07/17/24 Ordered By: Nissa Garcia Referrals: Cindy Zhao MD [Primary Care Provider, Family Practice] Patient Instructions: Abscess (ED), Abscess Follow-up (ED), Abscess Incision and Drainage (DC) Print Language: Tongan Coding Level of Care Code ED Registered Dietitian for Juan Manuel Horne
[2024-07-17] MEDS: Clindamycin 150 MG/ML SDV 2mL 300 MG IM (15:47)
[2024-07-17 16:03] VITALS: BP 154/94; PULSE 87; O2SAT 96
== END 2024-07-17 16:04 | disposition home or self-care (01) ==
PROVIDERS: Emergency Provider Physician Assistant; PCP Family Medicine
DX: L02.416 Cutaneous abscess of left lower limb (principal); Z79.01 Long term (current) use of anticoagulants; Z79.4 Long term (current) use of insulin; F17.210 Nicotine dependence, cigarettes, uncomplicated; J44.9 Chronic obstructive pulmonary disease, unspecified; E11.9 Type 2 diabetes mellitus without complications; I10 Essential (primary) hypertension
CPT/HCPCS: 87070; 87075; 87077; 87186; 87205; 96372; 99284; J0736

== ENCOUNTER → 2024-08-16 13:13 | Outpatient (BNVA) | payer OTHER, MEDICAID, SELFPAY | PROVIDERS: PCP Family Medicine; Visit Provider Family Medicine | DX: L02.416 Cutaneous abscess of left lower limb (principal) | CPT/HCPCS: 87070 ==

== ENCOUNTER → 2024-08-30 15:54 | Outpatient (BNVA) | payer OTHER, MEDICAID, SELFPAY | PROVIDERS: PCP Family Medicine; Visit Provider Orthopaedic Surgery | DX: M51.360 Other intervertebral disc degeneration, lumbar region with discogenic back pain only (principal); B99.9 Unspecified infectious disease; G89.29 Other chronic pain | CPT/HCPCS: 72110; 99203 ==

== ENCOUNTER 2024-08-31 14:45 | Outpatient (CLI) | payer OTHER, MEDICAID, SELFPAY ==
[2024-08-31 15:19] LABS: Hematocrit 40.9 % (36-47); Hemoglobin 13.10 g/dL (11.27-16.99); Mean Corpuscular HGB Conc 32.0 g/dL (30-55); Mean Corpuscular Hemoglobin 28.9 pg (27-33); Mean Corpuscular Volume 90.3 fl (85-98); Nucleated Red Blood Cells % 0 %; Platelet Count 220 10^3/cmm (157-399); Red Blood Count 4.53 10^6/uL (3.85-5.65); White Blood Count 6.22 10^3/uL (3.29-11.43)
[2024-08-31 16:01] LABS: Alanine Aminotransferase 13 U/L (0-33); Albumin Level 3.9 g/dL (3.5-5.2); Alkaline Phosphatase 77 U/L (35-105); Aspartate Amino Transferase 14 U/L (0-32); Blood Urea Nitrogen 11 mg/dL (8-23); Calcium 8.7 mg/dL (8.5-10.5); Carbon Dioxide 28 mmol/L (22-29); Chloride 104 mmol/L (98-107); Globulin 3.1 g/dL (1.3-4.6); Glucose 131 mg/dL (65-115); Osmolality Calculated 297 mOsm/kg (285-295); Sodium 143 mmol/L (136-145); Total Protein 7.0 g/dL (6.6-8.7)
[2024-08-31 16:09] LABS: Anion Gap 15.0 (5-19); Potassium 4.0 mmol/L (3.5-5.1)
== END 2024-08-31 14:46 | disposition home or self-care (01) ==
PROVIDERS: Orthopaedic Surgery; PCP Family Medicine; Visit Provider Family Medicine
DX: B99.9 Unspecified infectious disease (principal)
CPT/HCPCS: 36415; 80053; 85025; 85651; 86140

== ENCOUNTER 2024-09-07 09:44 | Outpatient (CLI) | payer OTHER, MEDICAID, SELFPAY ==
--- NOTE | 2024-09-07 10:00 | CT_ITS ---
WS: [id number] CT LEFT LOWER EXTREMITY WITHOUT CONTRAST HISTORY: History of multiple abscesses. Prior LEFT knee arthroplasty with revision. Technique: All CT scans at [facility] use at least one of these dose optimization techniques: automated exposure control; mA and/or kV adjustment per patient size (includes targeted exams where dose is matched to clinical indication); or iterative reconstruction. DLP: 1186.42 mGy.cm COMPARISON: None available. CT is performed of the LEFT lower extremity from just above the revised knee prosthesis to the ankle. There is focal skin thickening and soft tissue thickening in the suprapatellar region with adjacent muscle atrophy. There is no definite fluid collection identified. There are a few foci within the soft tissue which may represent small calcific deposits. There is no well-formed fluid collection. Additional soft tissue inflammatory changes continue medially and inferiorly over the lower extremity. There is soft tissue thickening extending along the posterior medial LEFT lower extremity continuing to the mid diaphysis. Additional subcutaneous edema distally. There is no well localized collection. Would be difficult to exclude infection without IV contrast or further imaging. RIGHT knee arthroplasty with revised femoral and tibial components. No fractures are identified. No bone destruction. CT/CT lower leg LT wo con* [id number] IMPRESSION: 1. Status post LEFT knee arthroplasty with revision. 2. Extensive soft tissue thickening along the superior patella although no def inite collections are identified. It would be difficult to exclude infection. 3. Additional extensive soft tissue thickening along the medial proximal lower extremity extending to the muscle fascia. Would be difficult to exclude infect ion although there is no well localized fluid collection. This all may be posto perative scarring with edema. 4. Distal subcutaneous edema.
== END 2024-09-07 09:45 | disposition home or self-care (01) ==
LOC: RAD 09:44
PROVIDERS: PCP Family Medicine; Visit Provider Orthopaedic Surgery
DX: Z98.890 Other specified postprocedural states (principal); R60.0 Localized edema
CPT/HCPCS: 73700

== ENCOUNTER 2024-09-10 03:31 | Emergency (ER) | payer OTHER, MEDICAID, SELFPAY ==
--- OUTSIDE RECORDS SUMMARY | 2024-02-09 23:15 | XMS_ITS | Continuity of Care Document ---
Author Organization Formerly [facility]. 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 Role Phone Unavailable Unavailable Unavailable Unavailable Unavailable Unavailable Unavailable Unavailable Unavailable Unavailable Unavailable Unavailable Unavailable Unavailable Unavailable Problems Acute asthma Onset:15-Feb-2024 Reji Guadalupe MD Joint pain Onset:05-Jun-2018 Allergies and Adverse Reactions Oxycodone(Allergy) Onset: 09-Feb-2024 divalproex sodium(Allergy) Onset: 09-Feb-2024 tobramycin(Allergy) Onset: 09-Feb-2024 Sulfa(Sulfonamide Antibiotic s)(Allergy) Onset: 05-Jun-2018 Reaction:UNKNOWN Tetanus(Allergy) Onset: 05-Jun-2018 Reaction:UNKNOWN Cephalexin(Allergy) Onset: 05-Jun-2018 Reaction:UNKNOWN tobramycin(Allergy) Onset: 05-Jun-2018 Reaction:UNKNOWN Medications water 1000 MG/ML Injectable Solution;[id number] Administration Instructions:Generic for Solu-MedrolIV PUSH over 3-15 minutes Reji Guadalupe MD Start:1-Cap-9344Ard:10-Feb-2024 Comments:[id number] Administration Instructions:Generic for Solu-MedrolIV PUSH over 3-15 minutes albuterol 0.833 MG/ML / ipratropium bromide 0.167 MG/ML Inhalation Solution;3 ML X1ED Quantity:1 Reji Guadalupe MD Start:2-Ffp-0865Fnm:09-Feb-2024 Comments:[id number] Administration Instructions:Nebulizer MedicationAdmin by RTDuoNeb iopamidol Quantity:1 Reji Guadalupe MD Start:09-Feb-2024 Status:Discontinued 1 ML ketorolac tromethamine 15 MG/ML Injection;15 MG X1ED Quantity:1 Reji Guadalupe MD Start:1-Ynp-2527Jis:09-Feb-2024 Comments:[id number] ondansetron 2 MG/ML Injectab le Solution [Zofran];4 MG X1ED Quantity:1 Reji Guadalupe MD Start:5-Wgu-5863Tvh:09-Feb-2024 Comments:[id number] Administration Instructions: LOOK-ALIKE/SOUND-ALIKE 1 ML morphine sulfate 4 MG/M L Prefilled Syringe;4 MG ONCE Quantity:1 Reji Guadalupe MD Start:2-Dbx-7469Hkv:09-Feb-2024 Comments:[id number] Administration Instructions:CONC: 4MG/ML Sound Alike/Look Alike SODIUM CHLORIDE 0.9% 1,000 M L BOT;[id number] Reji Guadalupe MD Start:7-Dit-4092Xej:09-Feb-2024 Comments:[id number] albuterol 0.833 MG/ML / ipratropium bromide 0.167 MG/ML Inhalation Solution;3 ML X1ED Quantity:1 Reji Guadalupe MD Start:4-Kvr-4018Akc:09-Feb-2024 Comments:[id number] Administration Instructions:Nebulizer MedicationAdmin by RTDuoNeb Procedures - CT ABD PEL WO IV CONResult:[facility] Name: DAVID SWIFT [id number] [facility] Phys: Collins Mendoza MD [place], [place] : 1960 Age: 63 Sex: F Acct: [id number] Loc: E.ED PHONE #: Exam Date: 02/10/2024 Status: REG ER FAX #: Radiology No: Unit No: [id number] EXAMS: [id number] CT ABD PEL WO IV CON - CT ABD PEL WO IV CON HISTORY: Right flank pain COMPARISON: None TECHNIQUE: A computed tomographic scan with axial imaging through the abdomen and pelvis was performed without contrast. Sagittal and coronal images were reconstructed using the raw data. Renal stone protocol utilized. Thank you for allowing us to participate in the care of your patient. Please note that this CT was performed using the most up-to-date dose reduction software and techniques (including automated exposure control, adjustment of the MA and/or kV according to patient size, and iterative reconstruction technique) in accordance with our continuing efforts to minimize radiation dose while maximizing the diagnostic quality of our images. FINDINGS: Some artifacts noted. Mild right and very mild left basilar atelectasis noted. Very small 2 mm left lower lobe calcified subpleural nodule noted laterally on series 3 image 5. Diffuse hepatic steatosis noted. Cholelithiasis noted. There is a 2 mm nonobstructive calculus within the inferior left kidney. No definite right urinary calculi identified. No evidence of acute urinary obstruction seen. Given the limitations of a nonintravenous contrast study, the spleen, pancreas, adrenal glands and right kidney appear within normal limits. No suspicious bulky lymphadenopathy identified. Aorta is not dilated. Some atherosclerosis noted. Distal colonic diverticulosis noted. The bowel is not dilated. Appendix is normal. No free air or free fluid is seen. The patient is status post hysterectomy. Very small fat-containing umbilical hernia noted. Some degenerative changes noted. Some subcutaneous soft tissue edema noted. IMPRESSION: 1. No acute findings are detected. 2. No definite right urinary calculi identified. 3. 2 mm nonobstructive left renal calculus. 4. No evidence of acute urinary obstruction seen. 5. Diffuse hepatic steatosis. 6. Cholelithiasis. 7. Normal appendix PAGE 1 Signed Report (CONTINUED) [facility] Name: DAVID SWIFT [id number] [facility] Phys: Collins Mendoza MD [place], [place] : 1960 Age: 63 Sex: F Acct: [id number] Loc: E.ED PHONE #: Exam Date: 02/10/2024 Status: REG ER FAX #: Radiology No: Unit No: [id number] EXAMS: [id number] CT ABD PEL WO IV CON <Continued> 8. Distal colonic diverticulosis. 9. Other findings as described. Thank you for the opportunity to participate in the care of your patient. Please contact us if we can be of further assistance. at 0358 Reported and signed by: Kulwant Tejeda MD CC: Dictated Date/Time: 02/10/2024 (0347)Technologist: JOSE M DIAZ Transcribed Date/Time: 02/10/2024 (0349) By: Orig Print D/T: S: 02/10/2024 (0401) BATCH NO: N/A PAGE 2 Signed Report Date:10-Feb-2024 Status:Completed - RAD CHEST 1V PORTABLEResult:[facility] Name: DAVID SWIFT [id number] [facility] [place] Phys: Collins Mendoza MD [place] : 1960 Age: 63 Sex: F Acct: [id number] Loc: E.ED PHONE #: Exam Date: 02/09/2024 Status: REG ER FAX #: Radiology No: Unit No: [id number] EXAMS: [id number] RAD CHEST 1V PORTABLE - RAD CHEST 1V PORTABLE HISTORY: Shortness of breath, cough TECHNIQUE: Portable frontal upright view of the chest COMPARISON: None FINDINGS: Overlying EKG leads noted. Overlying breast tissue noted. No acute infiltrate seen. No CHF seen. Cardiac mediastinal silhouette appears mildly prominent. No pneumothorax or pleural effusion seen. IMPRESSION: 1. No acute findings are detected. at 0046 Reported and signed by: Kulwant Tejeda MD CC: Dictated Date/Time: 02/10/2024 (44)Technologist: JOSE M DIAZ Transcribed Date/Time: 02/10/2024 (44) By: Orig Print D/T: S: 02/10/2024 (0050) BATCH NO: N/A PAGE 1 Signed Report Date:10-Feb-2024 Status:Completed Social History Smoking Status Smokes tobacco daily Recorded: 09-Feb-2024 Smokes tobacco daily Recorded: 05-Jun-2018 Results CBC W/ DIFFERENTIAL Ordered On:09-Feb-2024 23:13 BASOPHIL #0.0{x10_9/L}(Normal) Range:0{x10_9/L}-0.2{x10_9/L} BASOPHIL %1% EOSINOPHIL #0.2{x10_9/L}(Normal) Range:0{x10_9/L}-0.5{x10_9/L} EOSINOPHIL %2% ULTCESRKTI73.4%(Normal) Range:35 %-47% LQVDWXEBZJ46.2g/dL(Low) Range:11 .7g/dL-16g/dL IMMATURE GRAN ABS CNT0.02{x10_9/L}(Normal) Range:0{x10_9/L}-0.03{x10_9/L } IMM GRANULOCYTE %0% LYMPHOCYTE #1.9{x10_9/L}(Normal) Range:1{x10_9/L}-4.8{x10_9/L} LYMPHOCYTE %29% MEAN CELL HGB27.6pg(Normal) Rang e:27pg-34pg MEAN CELL HGB DOXDQFBNUELYI89.8g/dL(Low) Range:31g/dL-36g/dL MEAN CELL DOAUKZ88.7fL(Normal) Range:81fL-101fL MONOCYTE #0.4{x10_9/L}(Normal) Range:0{x10_9/L}-0.8{x10_9/L} MONOCYTE %6% MEAN PLATELET GRNKAT90.0fL(Normal) Range:9.4fL-12.3fL NEUTROPHIL #4.10{x10_9/L}(Normal) Range:3.5{x10_9/L}-8.5{x10_9/ L} NEUTROPHIL%62% PLATELET FILYQ49149*3/uL(Normal) Range:85191*3/uL-82539*3/uL RED BLOOD CELL4.0610*6/uL(Normal) Range:3.810*6/uL-5.310*6/uL RBC CELL DISTRIBUTIO N WIDTH CV13.4%(Normal) Range:12.5%-15.5% WHITE BLOOD CELL COUNT6.6110*3/uL(Normal) Range:4.510*3/uL-1110*3/uL COMPREHENSIVE METABOLIC PANEL Ordered On:09-Feb-2024 23:36 ANION GAP6.0mmol/L(Normal) Rang e:5mmol/L-14mmol/L ALBUMIN/GLOBULIN RATIO0.7(Low) Range:1.3-2.6 ALBUMIN SERUM2.7g/dL(Low) Range: 3.4g/dL-5g/dL ALT(SGPT)24U/L(Normal) Range:14U /L-49U/L ALKALINE RFBDNGWIDAS71T/L(Normal) Range:46U/L-116U/L AST(SGOT)18U/L(Normal) Range:15U /L-37U/L BLOOD UREA UDJCLCQH48ic/dL(Normal) Range:7mg/dL-18mg/dL CALCIUM8.1mg/dL(Low) Range:8.5mg /dL-10.1mg/dL CORRECTED CALCIUM9.1mg/dL(Normal) Range:8.5mg/dL-10.1mg/dL Comments:CALCIUM CORRECTED FOR ALBUMIN NPAQOYSF752muwu/L(Normal) Range: 98mmol/L-107mmol/L CARBON LTQYGXY11nqof/L(Normal) Range:21mmol/L-32mmol/L ESTIMATED CREATININE CLEAR70.9mL/min CREATININE0.74mg/dL(Normal) Rang e:0.55mg/dL-1.02mg/dL GFR CKD-EPI 20201008.424mL/min Ran ge:59mL/min-0 MTZZSYZ173he/dL(High) Range:74mg /dL-106mg/dL POTASSIUM4.0mmol/L(Normal) Range :3.5mmol/L-5.1mmol/L IRYCPE937comz/L(Normal) Range:13 6mmol/L-145mmol/L PROTEIN TOTAL SERUM6.7g/dL(Normal) Range:6.4g/dL-8.2g/dL BILIRUBIN TOTAL0.18mg/dL(Low) Range:0.2mg/dL-1mg/dL NT PRO-BNP Ordered On:09-Feb-2024 23:36 NT PRO-ECP273wc/mL Comments:Nor mal population (Esmeralda Behring reference range) Patients < 75 years: 0 - 125 pg/mL Patients >or= 75 years: 0 - 450 pg/bBHC-Oih-POI is useful in the diagnosis of acutecongestive heart failure and risk stratification inacute coronary syndrome. The following cut-points are feltoptimal for the diagnosis of acute CHF. TO RULE IN acute CHF TO RULE OUT acute CHF < 50 years: >or= 450 pg/mL All Ages: < 300 pg/mL 50-75 years: >or= 900 pg/mL >75 years: >nm=7394 pg/mL Vital Signs 10-Feb-2024 04:15 Lrcdqtvarix47.1f Comments:98.1 Pulse76 Comments:76 Respiratory Rate18 Comments:18 O2 SAT99% Comments:99 BP Sltzxuvo477ii[Hg] Comments:13 5 BP Mzymjloqy33bf[Hg] Comments:69 10-Feb-2024 04:15 Fdmqldfvjzm83.1f Comments:98.1 Pulse74 Comments:74 Respiratory Rate16 Comments:16 O2 SAT97% Comments:97 BP Jinhcaen583gx[Hg] Comments:13 1 BP Mqbumcycq76ai[Hg] Comments:72 10-Feb-2024 03:45 Pulse75 Comments:75 Respiratory Rate18 Comments:18 O2 SAT99% Comments:99 BP Grytfgde891fw[Hg] Comments:14 0 BP Sstilvdiq54bq[Hg] Comments:70 10-Feb-2024 02:46 Vexyagygeem66.1f Comments:98.1 Pulse73 Comments:73 Respiratory Rate18 Comments:18 O2 SAT94% Comments:94 BP Dzzuymtr196bg[Hg] Comments:13 8 BP Rultfsspb13yj[Hg] Comments:75 10-Feb-2024 01:08 Ihatamckevu27.1f Comments:98.1 Pulse76 Comments:76 Respiratory Rate18 Comments:18 O2 SAT94% Comments:94 BP Luegxadj104jw[Hg] Comments:12 0 BP Nkiqbqeep14qi[Hg] Comments:80 10-Feb-2024 00:08 Pulse80 Comments:80 Respiratory Rate18 Comments:18 O2 SAT94% Comments:94 BP Exaonbvh729vr[Hg] Comments:14 4 BP Tgejlhvjq38zw[Hg] Comments:85 09-Feb-2024 23:30 Hpykfbayqpq00.5f Comments:98.5 Pulse77 Comments:77 Respiratory Rate16 Comments:16 O2 SAT95% Comments:95 BP Oqgrxiyv639yx[Hg] Comments:11 5 BP Awnhkdvop01fc[Hg] Comments:69 09-Feb-2024 22:42 Xpsjftqkuwb02.1f Comments:98.1 Pulse79 Comments:79 Respiratory Rate18 Comments:18 O2 SAT96% Comments:96 BP Trgserpj501dh[Hg] Comments:13 9 BP Hjomwilos06tp[Hg] Comments:75 Height5.2655316[ft_us] Comments: 5 Svcexy276.4kg Comments:146.400 09-Feb-2024 22:42 BMI53.6kg/m2 Comments:53.6 Encounters Emergency Encounter Reason:SOB Encounter Diagnosis:Calculus of gallbladder without cholecystitis without obstruction,Fatty (change of) liver, not elsewhere classified,Calculus of kidney with calculus of ureter,Nicotine dependence, unspecified, uncomplicated,Other chronic pain,Asthma-COPD overlap syndrome,terminal block assembler (current) use of opiate analgesic,Diverticulosis of large intestine without perforation or abscess without bleeding 09-Feb-2024 22:09Dh5-Sfu-9959 04:15 [facility] Discharge Disposition:Discharged to home or self care (routine discharge) Reji Guadalupe MD-10-Feb-2024 [facility] ([facility])EMERGENCY PROVIDER REPORTREPORT#:[id number] REPORT STATUS: SignedDATE:02/10/24 TIME: 0131PATIENT: DAVID SWIFT UNIT #: [id number]#: [id number] ROOM/BED:: 62 LOCATION: E.EDAGE: 63 SEX: F PCP: Chalo ProviderSERVICE AUTHOR: Collins Mendoza MDREP SRV REP SRV TM: 0131* ALL edits or amendments must be made on the electronic/computer document *HPI-General IllnessFree Text HPI NotesFree Text HPI Notes63 YOF h/o chronic pain, asthma, copd who presents with shortness of breathtoday and right flank pain. No fevers, urinary sxs or vomiting. No chest pain.Notes wheezing.Tobacco useGeneralInitial Greet Date/Time 02/09/24 2248PresentationChief Complaint __ (SOB Right flank pain)Past Medical History - AdultStated Complaint SOBAllergiesCoded Allergies:divalproex sodium (From DEPAKOTE) (Severe, 02/09/24)oxycodone (Severe, 02/09/24)tobramycin (From TOBREX) (Severe, 02/09/24)Calculated Suicide Risk (nurs) No riskSmoking status for patients 13 years old or older: Current every day smokerPhysical ExamVital SignsVital SignsFirst Documented: Result Date Time Pulse Ox 96 02/08 2242 B/P 139/75 02/08 2242 B/P Mean 96 02/082 O2 Delivery Room air 02/08 2241 Temp 98.1 02/08 2241 Pulse 79 02/08 2242 Resp 18 02/08 224Last Documented: Result Date Time Pulse Ox 99 02/09 0415 B/P 135/69 02/09 0415 B/P Mean 91 02/09 0415 O2 Delivery Room air 02/09 0415 Temp 98.1 02/09 0415 Pulse 76 02/09 0415 Resp 02/09 0415General Exam: obese. Patient does not appear acutely ill or toxic.Eye Exam: Lids and conjunctiva are normalENT Exam: The general head and facial exam is normal. The neck is supplewithout meningeal signs. No significant adenopathy.Pulmonary Exam: No respiratory distress. The respiratory rate is normal. Nostridor. expiratory wheezing throughout.Cardiac Exam: The cardiac rate and rhythm are normal. No significant murmurs,rubs, or gallops. The peripheral pulses are normal.Abdominal Exam: Abdomen is soft and non-distended. No pulsatile masses. Thereis no local tenderness. There is no rebound or guarding noted.Skin and Soft Tissue: The skin is warm and dry, without significant abnormality. Good color.Musculoskeletal Exam: No peripheral edema. The musculoskeletal exam of thelower extremities is normal without significant local tenderness.Psychiatric: Normal adult with appropriate demeanor and interpersonalinteraction. Is oriented to person, place, and time.Review of Vital Signs ReviewedInterpretation DiagnosticsLab Results InterpretationResultsLaboratory Tests02/09/242306:[Embedded Image Not Available]Laboratory Tests: 02/08 2306 Chemistry Sodium (136 - 145 mmol/L) 142 Potassium (3.5 - 5.1 mmol/L) 4.0 Chloride (98 - 107 mmol/L) 105 Carbon Dioxide (21 - 32 mmol/L) 31 Anion Gap (5.0 - 14.0 mmol/L) 6.0 BUN (7 - 18 mg/dL) 11 Creatinine (0.55 - 1.02 mg/dL) 0.74 Estimated Creat Clear (mL/min) 70.9 Est GFR (CKD-EPI) (>59 mL/min) 91.424 Glucose (74 - 106 mg/dL) 148 H Calcium (8.5 - 10.1 mg/dL) 8.1 L Corrected Calcium (8.5 - 10.1 mg/dL) 9.1 Total Bilirubin (0.20 - 1.00 mg/dL) 0.18 L AST (15 - 37 U/L) 18 ALT (14 - 49 U/L) 24 Total Alk Phosphatase (46 - 116 U/L) 65 NT-Pro-B Natriuret Pep (pg/mL) 362 Serum Total Protein (6.4 - 8.2 g/dL) 6.7 Albumin (3.4 - 5.0 g/dL) 2.7 L Albumin/Globulin Ratio (1.3 - 2.6) 0.7 L Hematology WBC (4.50 - 11.00 10*3/uL) 6.61 RBC (3.8 - 5.3 10*6/uL) 4.06 Hgb (11.7 - 16.0 g/dL) 11.2 L Hct (35 - 47 %) 36.4 MCV (81 - 101 fL) 89.7 MCH (27 - 34 pg) 27.6 MCHC (31 - 36 g/dL) 30.8 L RDW Coeff of Marj (12.5 - 15.5 %) 13.4 Plt Count (140 - 440 10*3/uL) 195 MPV (9.4 - 12.3 fL) 10.0 Immature Gran % (Auto) (%) 0 Neutrophils % (%) 62 Lymphocytes % (%) 29 Monocytes % (%) 6 Eosinophils % (%) 2 Basophils % (%) 1 Immature Gran # (0 - 0.03 x10 9/L) 0.02 Neutrophils # (3.5 - 8.5 x10 9/L) 4.10 Lymphocytes # (1.0 - 4.8 x10 9/L) 1.9 Monocytes # (0.0 - 0.8 x10 9/L) 0.4 Eosinophils # (0.0 - 0.5 x10 9/L) 0.2 Basophils # (0.0 - 0.2 x10 9/L) 0.0Recent Impressions:RADIOLOGY - RAD CHEST 1V PORTABLE 02/08 2320 Report Impression - Status: SIGNED Entered: 02/10/2024 0050IMPRESSION:1. No acute findings are detected.Impression By: DR.BOYDA Giovani Tejeda, [facility]PUT[facility]OM[facility]GR[facility]HY - CT ABD PEL WO IV CON 02/09 0200 Report Impression - Status: SIGNED Entered: 02/10/2024 0401IMPRESSION:1. No acute findings are detected.2. No definite right urinary calculi identified.3. 2 mm nonobstructive left renal calculus.4. No evidence of acute urinary obstruction seen.5. Diffuse hepatic steatosis.6. Cholelithiasis.7. Normal appendix8. Distal colonic diverticulosis.9. Other findings as described.Thank you for the opportunity to participate in the care of yourpatient. Please contact us if we can be of further assistance.Impression By: DR.BOYDA Giovani Tejeda, ECG #1 InterpretationText/Dict [id number]: rate 73. SR. No STEMIRe-Evaluation MDMFree Text MDM NotesFree Text MDM Jtvsi70-vodc-jjp female history of COPD, asthma, tobacco use who presents withshortness of breath. On exam she has expiratory wheezing throughout. Sattingwell on room air. No recent fevers or or changes in her cough. Suspect this ismost likely asthma exacerbation. Will give nebs and reassess. Also evaluatefor pneumonia. Will also evaluate for CHF. No chest pain so low suspicion forACS.Patient also complains of Right flank pain. No CVA tenderness on exam. Deniesany urinary symptoms. Differential includes kidney stone or UTI. Will givepain meds obtain imaging and reassess.Following neb there is improvement in her symptoms. Given steroids. X-raysnegative for pneumonia but will cover for possible atypical pneumonia and givenher history of COPD. Wheezing has resolved on re-evaluation she feels morecomfortable.In regards to her flank pain she appears more comfortable no longer having anydiscomfort. CT scan is negative for obstructive kidney stone or pyelonephritis. I recommended obtaining a urinalysis pt declines this. She wants to go home.Discussed with her the risks. Given strict return precautions.ED CourseMedication(s) OrderedMedication(s) Ordered:Autonomic Drugs Sig/Prem Start time Last Medication Dose Route Stop Time Status Admin Albuterol/Ipratropium 3 ML X1ED ONE 02/08 2345 DC 02/08 NEB 02/08 2346 2350 Albuterol/Ipratropium 3 ML X1ED ONE 02/08 2300 DC 02/08 NEB 02/08 2301 2332Central Nervous System Agents Sig/Prem Start time Last Medication Dose Route Stop Time Status Admin Ketorolac 15 MG X1ED ONE 02/08 2315 DC 02/08 Tromethamine IV 02/08 2315 2315 Morphine Sulfate 4 MG ONCE ONE 02/08 2315 DC 02/08 IV 02/08 231 2315Diagnostic Agents Sig/Prem Start time Last Medication Dose Route Stop Time Status Admin Iopamidol 0 .STK-MED ONE 02/08 2335 DC .ROUTEElectrolytic, Caloric, And Topher Sig/Prem Start time Last Medication Dose Route Stop Time Status Admin Sodium Chloride 1,000 ML BOLUS ONE 02/08 230 DC 02/08 IV 02/08 2359 2316Gastrointestinal Drugs Sig/Prem Start time Last Medication Dose Route Stop Time Status Admin Ondansetron HCl 4 MG X1ED ONE 02/08 2315 DC 02/08 IV 02/08 2315 2315Hormones And Synthetic Substit Sig/Prem Start time Last Medication Dose Route Stop Time Status Admin Methylprednisolone 125 MG ONCE ONE 02/09 0045 DC 02/09 Sodium Succinate IV 02/09 0047 0058 Sterile Water 2 MLPatient Discharge DepartureVital Signs/ConditionVital SignsFirst Documented: Result Date Time Pulse Ox 96 02/08 2241 B/P 139/75 02/08 224 B/P Mean 96 02/08 224 O2 Delivery Room air 02/08 2241 Temp 98.1 02/08 2241 Pulse 79 02/08 2241 Resp 18 02/08 2242Last Documented: Result Date Time Pulse Ox 99 02/09 0415 B/P 135/69 02/09 0415 B/P Mean 91 02/09 0415 O2 Delivery Room air 02/095 Temp 98.1 02/09 0415 Pulse 76 02/09 0415 Resp 18 02/09 0415All vital signs available at the time of this entry have been reviewed.Clinical ImpressionClinical ImpressionPrimary Impression: Asthma exacerbationDischarge/Care Plan(Auto) PrescriptionsCurrent Visit ScriptspredniSONE 20 MG PO DIRECTED 4 Days #12 TAB take 3 tablets dailyAZITHROMYCIN (ZITHROMAX) 250 MG PO Z-PACK 5 Days #6 TAB Take 2 tablets by mouth on day 1,then take 1 tablet every day for 4 days.ALBUTEROL (PROAIR HFA 90 MCG/ACT) 1-2 PUFF INH Q4HR PRN PRN wheezing ALBUTEROL (PROAIR HFA 90 MCG/ACT) 1-2 PUFF INH Q4HR PRN PRN wheezing #8.5GMPatient Instructions ED Standard Education for ...ReferralsProvider Referral: Undefined Provider at 0850RPT #: [id number] OF REPORT Plan of Treatment Work up is unremarkable. Take steroids for asthma exacerbation use albuterol every 4 hours as needed Future Tests Future scheduled test information is unavailable Pending Tests Pending diagnostic test information is unavailable Future Visits Future appointment information is unavailable Referrals to Other Providers Reason for Referral Referral Start Date Provider Provider Contact Information Provider Address Undefined Provider Future Procedures Future procedure information is unavailable Future Medications Future medication information is unavailable Patient Instructions Instruction Admit Date ED Standard Education for ... February 9:41pm ED Asthma, Acute (Adult) February 08 9:41pm
[2024-09-10 03:45] VITALS: BP 189/95; PULSE 91; RESP 18; TEMP 36.8; O2SAT 99; BMI 49.9
--- OUTSIDE RECORDS SUMMARY | 2024-09-10 03:46 | XMS_ITS | Patient Health Record ---
Author Organization [facility] Address [address] [place] [address] Care Team Providers Care Public Policy Professor Name Role Phone Cindy Robles MD Primary Care Provider Edith Jon Unavailable [phone] Melissa Bose Unavailable [phone] Narda Taylor Unavailable Reuben Flanneyr Unavailable [phone] Allergies Allergen (clinical drug ingredient) Drug/Non Drug Allergy documented on EMR Reaction Allergy Type Onset Date Status valproate Depakote Unknown Drug Allergy Active lamotrigine Lamotrigine Unknown Drug Allergy Act asa oxycodone Oxycodone anaphylaxis Drug Allergy Activ e Results Component Value Reference Range Flag Notes Urine Drug Screen (cup read) - [id number] Reviewed date:01/26/2024 09:49:04 AM Interpretation:Negative Performing Lab: Notes/Report: Negative AMP - MENDOZA - BUP - BZO - MDMA - OPI - PCP - OXY - MTD - MAMP - Urine Drug Screen (cup read) - [id number] Reviewed date:05/01/2024 01:39:10 PM Interpretation:Positive Performing Lab: Notes/Report: Positive AMP + OPI + Urine Confirmation Panel (in strument) - [id number] Reviewed date:05/08/2024 02:17:38 PM Interpretation: Performing Lab: Notes/Report: 6-Acetylmorphine 0 <6 ng/mL N This gifty t was developed and its performance characteristics determined by [facility]. It has not been cleared or approved by the U.S. Food and Drug Administration. 7-Aminoclonazepam 0 <60 ng/mL N This te st was developed and its performance characteristics determined by [facility]. It has not been cleared or approved by the U.S. Food and Drug Administration. Alprazolam 0 <60 ng/mL N This test was developed and its performance characteristics determined by [facility]. It has not been cleared or approved by the U.S. Food and Drug Administration. Amphetamine >5000 <75 ng/mL > This test was developed and its performance characteristics determined by [facility]. It has not been cleared or approved by the U.S. Food and Drug Administration. aOH-Alprazolam 0 <60 ng/mL N This test was developed and its performance characteristics determined by [facility]. It has not been cleared or approved by the U.S. Food and Drug Administration. Buprenorphine 0.0 <7.5 ng/mL N This test w as developed and its performance characteristics determined by [facility]. It has not been cleared or approved by the U.S. Food and Drug Administration. Norbuprenorphine 0.0 <37.5 ng/mL N This te st was developed and its performance characteristics determined by [facility]. It has not been cleared or approved by the U.S. Food and Drug Administration. Carisoprodol 0 <75 ng/mL N This test wa s developed and its performance characteristics determined by [facility]. It has not been cleared or approved by the U.S. Food and Drug Administration. Codeine 0 <75 ng/mL N This test was developed and its performance characteristics determined by [facility]. It has not been cleared or approved by the U.S. Food and Drug Administration. EDDP 0 <75 ng/mL N This test was developed and its performance characteristics determined by [facility]. It has not been cleared or approved by the U.S. Food and Drug Administration. Fentanyl 0 <6 ng/mL N This test was developed and its performance characteristics determined by [facility]. It has not been cleared or approved by the U.S. Food and Drug Administration. Hydrocodone 0 <75 ng/mL N This test was developed and its performance characteristics determined by [facility]. It has not been cleared or approved by the U.S. Food and Drug Administration. Hydromorphone 0 <75 ng/mL N This test w as developed and its performance characteristics determined by [facility]. It has not been cleared or approved by the U.S. Food and Drug Administration. Lorazepam 0 <60 ng/mL N This test was developed and its performance characteristics determined by [facility]. It has not been cleared or approved by the U.S. Food and Drug Administration. MDMA 0 <75 ng/mL N This test was developed and its performance characteristics determined by [facility]. It has not been cleared or approved by the U.S. Food and Drug Administration. Meperidine 0.0 <37.5 ng/mL N This test was developed and its performance characteristics determined by [facility]. It has not been cleared or approved by the U.S. Food and Drug Administration. Meprobamate 0 <75 ng/mL N This test was developed and its performance characteristics determined by [facility]. It has not been cleared or approved by the U.S. Food and Drug Administration. Methamphetamine 4 <75 ng/mL N This test was developed and its performance characteristics determined by [facility]. It has not been cleared or approved by the U.S. Food and Drug Administration. Methadone 0 <75 ng/mL N This test was developed and its performance characteristics determined by [facility]. It has not been cleared or approved by the U.S. Food and Drug Administration. Morphine 4853 <75 ng/mL H This test was developed and its performance characteristics determined by [facility]. It has not been cleared or approved by the U.S. Food and Drug Administration. Nordiazepam 0 <60 ng/mL N This test was developed and its performance characteristics determined by [facility]. It has not been cleared or approved by the U.S. Food and Drug Administration. Norfentanyl 1 <6 ng/mL N This test was developed and its performance characteristics determined by [facility]. It has not been cleared or approved by the U.S. Food and Drug Administration. Normeperidine 0.0 <37.5 ng/mL N This test was developed and its performance characteristics determined by [facility]. It has not been cleared or approved by the U.S. Food and Drug Administration. O-desmethyltramadol 0 <75 ng/mL N This test was developed and its performance characteristics determined by [facility]. It has not been cleared or approved by the U.S. Food and Drug Administration. Oxazepam 0 <60 ng/mL N This test was developed and its performance characteristics determined by [facility]. It has not been cleared or approved by the U.S. Food and Drug Administration. Oxycodone 0.0 <37.5 ng/mL N This test was developed and its performance characteristics determined by [facility]. It has not been cleared or approved by the U.S. Food and Drug Administration. Oxymorphone 16 <75 ng/mL N This test was developed and its performance characteristics determined by [facility]. It has not been cleared or approved by the U.S. Food and Drug Administration. Phencyclidine 0.0 <7.5 ng/mL N This test w as developed and its performance characteristics determined by [facility]. It has not been cleared or approved by the U.S. Food and Drug Administration. Tapentadol 16.2 <37.5 ng/mL N This test was developed and its performance characteristics determined by [facility]. It has not been cleared or approved by the U.S. Food and Drug Administration. Temazepam 0 <60 ng/mL N This test was developed and its performance characteristics determined by [facility]. It has not been cleared or approved by the U.S. Food and Drug Administration. Tramadol 0 <75 ng/mL N This test was developed and its performance characteristics determined by [facility]. It has not been cleared or approved by the U.S. Food and Drug Administration. Norhydrocodone 0 <75 ng/mL N This test was developed and its performance characteristics determined by [facility]. It has not been cleared or approved by the U.S. Food and Drug Administration. Noroxycodone 0 <38 ng/mL N This test wa s developed and its performance characteristics determined by [facility]. It has not been cleared or approved by the U.S. Food and Drug Administration. Pregabalin 0 <225 ng/mL N This test was developed and its performance characteristics determined by [facility]. It has not been cleared or approved by the U.S. Food and Drug Administration. Gabapentin 0 <225 ng/mL N This test was developed and its performance characteristics determined by [facility]. It has not been cleared or approved by the U.S. Food and Drug Administration. Benzoylecgonine 0.0 <37.5 ng/mL N This gifty t was developed and its performance characteristics determined by [facility]. It has not been cleared or approved by the U.S. Food and Drug Administration. 4-Hydroxy Xylazine 0 <25 ng/mL N This t est was developed and its performance characteristics determined by [facility]. It has not been cleared or approved by the U.S. Food and Drug Administration. IH Lumbosacral Spine Comp AP /Lat w/ Obl - [id number] Reviewed date:01/26/2024 11:49:06 AM Interpretation: Performing Lab: Notes/Report: ofz=[id number]&org=[facility] Tox Results Reviewed date:08/31/2024 09:25:51 AM Interpretation: Performing Lab: Notes/Report: IH Lumbosacral Spine Comp AP /Lat w/ Obl - [id number] Reviewed date:01/27/2024 04:44:08 PM Interpretation: Performing Lab: Notes/Report: See Below For Report Lumbosacral Spine Comp AP/Lat w/ Obl Diagnosis Description: Chronic pain syndrome Tox Results Reviewed date:05/08/2024 02:19:25 PM Interpretation: Performing Lab: Notes/Report: Urine Confirmation Panel (in strument) - [id number] Reviewed date:08/29/2024 05:17:35 PM Interpretation: Performing Lab: Notes/Report: 6-Acetylmorphine 0 <6 ng/mL N This gifty t was developed and its performance characteristics determined by [facility]. It has not been cleared or approved by the U.S. Food and Drug Administration. 7-Aminoclonazepam 0 <60 ng/mL N This te st was developed and its performance characteristics determined by [facility]. It has not been cleared or approved by the U.S. Food and Drug Administration. Alprazolam 0 <60 ng/mL N This test was developed and its performance characteristics determined by [facility]. It has not been cleared or approved by the U.S. Food and Drug Administration. Amphetamine 2 <75 ng/mL N This test was developed and its performance characteristics determined by [facility]. It has not been cleared or approved by the U.S. Food and Drug Administration. aOH-Alprazolam 0 <60 ng/mL N This test was developed and its performance characteristics determined by [facility]. It has not been cleared or approved by the U.S. Food and Drug Administration. Buprenorphine 0.0 <7.5 ng/mL N This test w as developed and its performance characteristics determined by [facility]. It has not been cleared or approved by the U.S. Food and Drug Administration. Norbuprenorphine 0.0 <37.5 ng/mL N This te st was developed and its performance characteristics determined by [facility]. It has not been cleared or approved by the U.S. Food and Drug Administration. Carisoprodol 0 <75 ng/mL N This test wa s developed and its performance characteristics determined by [facility]. It has not been cleared or approved by the U.S. Food and Drug Administration. Codeine 0 <75 ng/mL N This test was developed and its performance characteristics determined by [facility]. It has not been cleared or approved by the U.S. Food and Drug Administration. EDDP 0 <75 ng/mL N This test was developed and its performance characteristics determined by [facility]. It has not been cleared or approved by the U.S. Food and Drug Administration. Fentanyl 0 <6 ng/mL N This test was developed and its performance characteristics determined by [facility]. It has not been cleared or approved by the U.S. Food and Drug Administration. Hydrocodone 1290 <75 ng/mL H This test was developed and its performance characteristics determined by [facility]. It has not been cleared or approved by the U.S. Food and Drug Administration. Hydromorphone 168 <75 ng/mL H This test w as developed and its performance characteristics determined by [facility]. It has not been cleared or approved by the U.S. Food and Drug Administration. Lorazepam 0 <60 ng/mL N This test was developed and its performance characteristics determined by [facility]. It has not been cleared or approved by the U.S. Food and Drug Administration. MDMA 0 <75 ng/mL N This test was developed and its performance characteristics determined by [facility]. It has not been cleared or approved by the U.S. Food and Drug Administration. Meperidine 0.0 <37.5 ng/mL N This test was developed and its performance characteristics determined by [facility]. It has not been cleared or approved by the U.S. Food and Drug Administration. Meprobamate 0 <75 ng/mL N This test was developed and its performance characteristics determined by [facility]. It has not been cleared or approved by the U.S. Food and Drug Administration. Methamphetamine 0 <75 ng/mL N This test was developed and its performance characteristics determined by [facility]. It has not been cleared or approved by the U.S. Food and Drug Administration. Methadone 0 <75 ng/mL N This test was developed and its performance characteristics determined by [facility]. It has not been cleared or approved by the U.S. Food and Drug Administration. Morphine 0 <75 ng/mL N This test was developed and its performance characteristics determined by [facility]. It has not been cleared or approved by the U.S. Food and Drug Administration. Nordiazepam 0 <60 ng/mL N This test was developed and its performance characteristics determined by [facility]. It has not been cleared or approved by the U.S. Food and Drug Administration. Norfentanyl 0 <6 ng/mL N This test was developed and its performance characteristics determined by [facility]. It has not been cleared or approved by the U.S. Food and Drug Administration. Normeperidine 0.0 <37.5 ng/mL N This test was developed and its performance characteristics determined by [facility]. It has not been cleared or approved by the U.S. Food and Drug Administration. O-desmethyltramadol 0 <75 ng/mL N This test was developed and its performance characteristics determined by [facility]. It has not been cleared or approved by the U.S. Food and Drug Administration. Oxazepam 0 <60 ng/mL N This test was developed and its performance characteristics determined by [facility]. It has not been cleared or approved by the U.S. Food and Drug Administration. Oxycodone 0.0 <37.5 ng/mL N This test was developed and its performance characteristics determined by [facility]. It has not been cleared or approved by the U.S. Food and Drug Administration. Oxymorphone 0 <75 ng/mL N This test was developed and its performance characteristics determined by [facility]. It has not been cleared or approved by the U.S. Food and Drug Administration. Phencyclidine 0.0 <7.5 ng/mL N This test w as developed and its performance characteristics determined by [facility]. It has not been cleared or approved by the U.S. Food and Drug Administration. Tapentadol 0.0 <37.5 ng/mL N This test was developed and its performance characteristics determined by [facility]. It has not been cleared or approved by the U.S. Food and Drug Administration. Temazepam 2 <60 ng/mL N This test was developed and its performance characteristics determined by [facility]. It has not been cleared or approved by the U.S. Food and Drug Administration. Tramadol 0 <75 ng/mL N This test was developed and its performance characteristics determined by [facility]. It has not been cleared or approved by the U.S. Food and Drug Administration. Norhydrocodone 1079 <75 ng/mL H This test was developed and its performance characteristics determined by [facility]. It has not been cleared or approved by the U.S. Food and Drug Administration. Noroxycodone 0 <38 ng/mL N This test wa s developed and its performance characteristics determined by [facility]. It has not been cleared or approved by the U.S. Food and Drug Administration. Pregabalin 0 <225 ng/mL N This test was developed and its performance characteristics determined by [facility]. It has not been cleared or approved by the U.S. Food and Drug Administration. Gabapentin 0 <225 ng/mL N This test was developed and its performance characteristics determined by [facility]. It has not been cleared or approved by the U.S. Food and Drug Administration. Benzoylecgonine 0.0 <37.5 ng/mL N This gifty t was developed and its performance characteristics determined by [facility]. It has not been cleared or approved by the U.S. Food and Drug Administration. 4-Hydroxy Xylazine 0 <25 ng/mL N This t est was developed and its performance characteristics determined by [facility]. It has not been cleared or approved by the U.S. Food and Drug Administration. Urine Drug Screen (cup read) - [id number] Reviewed date:08/23/2024 11:34:50 AM Interpretation: Performing Lab: Notes/Report: OPI + zzzUrine Drug Screen (confir mation by instrument) - 23912 Reviewed date:03/16/2024 03:27:27 PM Interpretation: Performing Lab: Notes/Report: Urine Drug Screen (cup read) - [id number] Reviewed date:03/14/2024 10:18:04 AM Interpretation: Performing Lab: Notes/Report: AMP POS OPI POS Reason For Referral Reason eval and treat Diagnosis 1 Chronic pain syndrom e (G89.4) Referred Organization [facility] Referred Provider Mariela Taylor Referred Address [address] [facility] [place],[address] Referred Provider Specialty Pain Medicin e General Notes Etta Titus 03/2023 07:57:36 AM >no demo sent with records, Savanna Chambers 01/16/2024 02:08:34 PM >LVM to schedule appt/ Referral Priority Routine Medications Medication SIG (Take, Route, Frequency, Duration) Notes Start Date End Date Status HYDROcodone-Acetam inophen 10-325 MG Tablet 1 tablet as needed Orally every 4-6 hrs; Duration: 30 days As needed Not to exceed 4 per day fill 08/23/24 08/23/2024 09/22/2024 Active Topiramate 100 MG Tablet 1 tablet Orally Once a day; Duration: 30 days fill 30 days from last fill date 03/14/2024 Active tiZANidine HCl 4 MG Tablet 1 tablet Orally 3 times a day; Duration: 30 days As needed Fill 30 days from previous RX 08/23/2024 09/22/2024 Active Topiramate 100 MG Tablet 1 tablet Orally Once a day; Duration: 30 days Fill 30 days from previous prescription 06/26/2024 Active Eliquis 2.5 MG Tablet as directed Orally Active DULoxetine HCl 60 MG Capsule Delayed Release Particles 1 capsule Orally twice a day; Duration: 30 days Fill 30 days from previous prescription 06/26/2024 Active DULoxetine HCl 60 MG Capsule Delayed Release Sprinkle 1 capsule Orally twice a day; Duration: 30 days 05/01/2024 Active DULoxetine HCl 20 MG Capsule Delayed Release Particles 1 capsule Orally Once a day Active Cefadroxil 500 MG Capsule 1 capsule Orally every 12 hrs Active Social History Tobacco Use: Social History Observation Description Date Details (start date - stop date) Current Smoker NA - NA Social History Tobacco Use: Social Info Question Answer Notes Tobacco Control (Standard) Tobacco use: Current smoker How often do you smoke cigarettes? Every day How many cigarettes a day do you smoke? 21-30 Problems Problem Type SNOMED Code ICD Code Onset Dates Problem Status W/U Status Risk Notes Problem Opioid dependence (05935038) Opioid dependence, uncomplicated (F11.20) Active confirmed Problem Chronic pain (67083809) Other chronic pain (G89.29) Active confirmed Problem Chronic pain syndrome (599216360) Chronic pain syndrome (G89.4) Active confirmed Problem Pain of left knee joint (finding) (225537081490364 ) Pain in left knee (M25.562) Active confirmed Problem Fibromyalgia (185013346) Fibromyalgia (M79.7) Active confirmed Problem High risk drug monitoring status (174431026) detention (current) use of opiate analgesic (Z79.891) Active confirmed Problem Pain in limb (73520502) Hand pain, left (M79.642) Active confirmed Problem Obesity (793794856) Obesity (E66.9) Active confirmed Problem Pain in limb (47646646) Hand pain, right (M79.641) Active confirmed Problem Migraine without aura, not refractory (711741130) Migraine without aura and without status migrainosus, not intractable (G43.009) Active confirmed Problem Post-laminectomy syndrome (90484760) Post laminectomy syndrome (M96.1) Active confirmed Problem Lumbosacral spondylosis (859740315) Lumbosacral spondylosis (M47.817) Active confirmed Problem Low back pain (066698039) Low back pain, unspecified (M54.50) Active confirmed Problem Antalgic gait (45831209) Antalgic gait (R26.89) Active confirmed Vital Signs Heart Rate 76 /min 01/26/2024 Blood pressure diastolic 85 mm Hg 01/26/2024 Height-cm 165.1 cm 08/23/2024 Weight-kg 136.08 kg 08/23/2024 Height 65 in 08/23/2024 Blood pressure systolic 131 mm Hg 01/26/2024 Weight 300 lbs 08/23/2024 BMI 49.92 kg/m2 08/23/2024 Procedures Procedure Date Ordered Date Performed Result Body Sit e Facet Inj. / MBB Lumbar/Sacr al, 2 levels - 82988, 35436 07/18/2024 N/A Encounters Encounter Location Date Provider Diagnosis [facility] [place] [address] [place] [address] 08/23/2024 Edith Pham Chronic pain syndrome G89.4 ; Low back pain, unspecified M54.50 ; Pain in left knee M25.562 ; Fibromyalgia M79.7 ; Hand pain, left M79.642 ; Hand pain, right M79.641 ; Antalgic gait R26.89 ; Lumbosacral spondylosis M47.817 ; Post laminectomy syndrome M96.1 ; Migraine without aura and without status migrainosus, not intractable G43.009 and long term care pharmacist (current) use of opiate analgesic Z79.891 [facility] [address] [address] 07/24/2024 Narda Howardsyaníbal-Pric e Chronic pain syndrome G89.4 ; Low back pain, unspecified M54.50 ; Pain in left knee M25.562 ; Fibromyalgia M79.7 ; Hand pain, left M79.642 ; Hand pain, right M79.641 ; Antalgic gait R26.89 ; Lumbosacral spondylosis M47.817 ; Post laminectomy syndrome M96.1 ; Migraine without aura and without status migrainosus, not intractable G43.009 and long term care pharmacist (current) use of opiate analgesic Z79.891 [facility] [address] [address] 06/26/2024 Narda Howardsyasiaova-Pric e Chronic pain syndrome G89.4 ; Low back pain, unspecified M54.50 ; Pain in left knee M25.562 ; Fibromyalgia M79.7 ; Hand pain, left M79.642 ; Hand pain, right M79.641 ; Antalgic gait R26.89 ; Lumbosacral spondylosis M47.817 ; Post laminectomy syndrome M96.1 ; Migraine without aura and without status migrainosus, not intractable G43.009 and detention (current) use of opiate analgesic Z79.891 [facility] [address] [address] 05/01/2024 Narda Lyuksyutova-Pric e Chronic pain syndrome G89.4 ; Low back pain, unspecified M54.50 ; Pain in left knee M25.562 ; Fibromyalgia M79.7 ; Hand pain, left M79.642 ; Hand pain, right M79.641 ; Antalgic gait R26.89 ; long term care pharmacist (current) use of opiate analgesic Z79.891 and Lumbosacral spondylosis M47.817 [facility] [address] [place] [address] 03/14/2024 Narda Lyuksyutova-Pric e Chronic pain syndrome G89.4 ; Low back pain, unspecified M54.50 ; Pain in left knee M25.562 ; Fibromyalgia M79.7 ; Hand pain, left M79.642 ; Hand pain, right M79.641 ; Antalgic gait R26.89 and detention (current) use of opiate analgesic Z79.891 [facility] [address] [place] [address] 01/26/2024 Reuben Prudencio Chronic pain syndrome G89.4 ; Low back pain, unspecified M54.50 ; Pain in left knee M25.562 ; Hand pain, left M79.642 ; Hand pain, right M79.641 ; Fibromyalgia M79.7 ; Antalgic gait R26.89 and detention (current) use of opiate analgesic Z79.891 [facility] [address] [place] [address] 03/01/2024 Narda Lyuksyutova-Pric e Chronic pain syndrome G89.4 [facility] [address] [place] [address] 01/26/2024 Melissa Bose Chronic pain syndrome G89.4 [facility] [place] [address] [facility] [place] [address] 08/23/2024 Narda Pritchettuksyutjeffrey-Pric e Lumbosacral spondylosis M47.817 [facility] [address] [place] [address] 03/15/2024 Narda Pritchettuksyutova-Pric e Low back pain, unspecified M54.50 [facility] [address], [place] [address] 03/15/2024 Narda Moss-Eneidac e [facility] [address], [place] [address] 03/14/2024 Narda Moss-Eneidac linda Assessments Encounter Date Diagnosis (ICD Code) Assessment Notes Treatment Notes Treatment Clinical Notes Section Notes 01/26/2024 Chronic pain syndrome (ICD-10 - G89.4) Patient is a 63-year-old female with past medical history of hypertension, type 2 diabetes, peripheral vascular disease, COPD, KARY, CKD, GERD, fibromyalgia, bipolar disorder, ADHD, nicotine dependence, and chronic pain syndrome, presenting today as a referral from Dr. Edith Jamison to establish care. Patient today is primarily complaining of low back, left knee, and bilateral hand pain, with the worse of her pain in her low back. Patient reports history of low back pain for many years which has gradually progressed since 2020. She also reports extensive history of prior left knee surgeries with her last left knee surgery in 01/2019. Patient's pain up to this point has been largely unresponsive to conservative management including, medications and physical therapy. Her pain was previously managed with morphine IR 50 mg TID which she reports was prescribed by her previous pain management provider in [place], [place]. We do not have her prior pain management records at this visit. On evaluation today, her pain is likely multi-factoria l in etiology with evidence of facetogenic, neuropathic, nociplastic, and myofascial elements on exam. Discussed treatment options with the patient. Given that the patient has not had any recent imaging of her back, we will plan on obtaining updated imaging today. We will also plan on continuing her previously tolerated morphine IR 15 mg up to 3 times/day, as this has been very effective in controlling her pain up to this point. All patient questions were addressed and answered. We will plan to have the patient follow up in [address] Pulido in [place], [place] where the patient resides. 01/26/2024 Low back pain, unspecified (ICD-10 - M54.50) Patient is a 63-year-old female with past medical history of hypertension, type 2 diabetes, peripheral vascular disease, COPD, KARY, CKD, GERD, fibromyalgia, bipolar disorder, ADHD, nicotine dependence, and chronic pain syndrome, presenting today as a referral from Dr. Edith Jamison to establish care. Patient today is primarily complaining of low back, left knee, and bilateral hand pain, with the worse of her pain in her low back. Patient reports history of low back pain for many years which has gradually progressed since 2020. She also reports extensive history of prior left knee surgeries with her last left knee surgery in 01/2019. Patient's pain up to this point has been largely unresponsive to conservative management including, medications and physical therapy. Her pain was previously managed with morphine IR 50 mg TID which she reports was prescribed by her previous pain management provider in [place], [place]. We do not have her prior pain management records at this visit. On evaluation today, her pain is likely multi-factoria l in etiology with evidence of facetogenic, neuropathic, nociplastic, and myofascial elements on exam. Discussed treatment options with the patient. Given that the patient has not had any recent imaging of her back, we will plan on obtaining updated imaging today. We will also plan on continuing her previously tolerated morphine IR 15 mg up to 3 times/day, as this has been very effective in controlling her pain up to this point. All patient questions were addressed and answered. We will plan to have the patient follow up in [address] Pulido in [place], [place] where the patient resides. 03/01/2024 Chronic pain syndrome (ICD-10 - G89.4) 03/14/2024 Chronic pain syndrome (ICD-10 - G89.4) Pleasant Patient with HTN, T2DM, PVD, COPD, KARY, CKD, GERD, fibromyalgia, bipolar disorder, ADHD, nicotine dependence, and chronic pain syndrome who has low back, left knee, bilateral hand pain. Patient's pain up to this point has been largely unresponsive to conservative management including, medications and physical therapy. Her pain was previously managed with morphine IR 50 mg TID which she reports was prescribed by her previous pain management provider in [place], [place]. We do not have her prior pain management records at this visit. On evaluation today, her pain is likely multi-factorial in etiology with evidence of facetogenic, neuropathic, nociplastic, and myofascial elements on exam. Discussed treatment options with the patient. The patient presents to clinic for medication evaluation and management. The patient is stable on their current medication regimen and endorses adequate analgesia, increased ADLs, denies abuse and side effects. The LBD TEACHER was reviewed with no untoward events noted. A bowel regimen was discussed with the patient. The options for treatment were explained in detail, this included PT, medications, injections, lifestyle modifications and exercise. At next visit will discuss Lumbar L4/L5 L5/S1 medial branch blocks versus focusing more on her SI joints. 03/14/2024 Low back pain, unspecified (ICD-10 - M54.50) 03/15/2024 Low back pain, unspecified (ICD-10 - M54.50) 05/01/2024 Chronic pain syndrome (ICD-10 - G89.4) She's a pleasant patient with type 2 diabetes, COPD, CKD, GERD, fibromyalgia, bipolar, nicotine dependence, and chronic pain syndrome. She has lower back, left knee, and bilateral hand pain. In the apst, she reports she had an SCS trial in [place] with good relief. We will obtain those records. She's doing well on her current regimen of Morphine sulfate IR 15 mg up to 3 tablets per day. I discussed with her diagnostic lumbar L4/5 L5/S1 medial branch blocks. She agreed to proceed. She does report that she was anxious, so we might have to do these blocks with sedation. She's very hesitant regarding needles. Additionally, we'll continue her Topiramate 100 mg daily as it's giving her good relief from her migraine mediated pain. The options for treatment were explained in detail, this included PT, medications, injections, lifestyle modifications and exercise. The patient presents to clinic for medication evaluation and management. The patient is stable on their current medication regimen and endorses adequate analgesia, increased ADLs, denies abuse and side effects. The LBD TEACHER was reviewed with no untoward events noted. UDS reviewed and is as expected. A bowel regimen was discussed with the patient. 05/01/2024 Low back pain, unspecified (ICD-10 - M54.50) 06/26/2024 Chronic pain syndrome (ICD-10 - G89.4) Ms. Baron is a pleasant patient with COPD, CKD, GERD, fibromyalgia, bipolar disorder, nicotine dependence, and chronic pain syndrome. She has lower back, left knee, and bilateral hand pain. She does have a little infection in her left knee along the scar tissue that she had lanced by an ER physician, and she's on Bactrim for that. She previously had a SCS trial in [place] with good relief. We're still pending getting those records. She is having very much difficulty obtaining her MS IR 15 mg 3 tablets per day and is going to switch to a different medication. We'll try out Fentanyl patches 12.5 mcg/hour on her. She's set to have her diagnostic medial branch blocks here in the future. Additionally, we'll continue Topiramate 100 mg daily and Duloxetine 60 mg BID. UDS confirmation 04/26/24 was consistent with prescribed medication and was positive for methamphetamines and morphine. She does get illicit Dexamphetamine [address] Shin. PDMP reviewed with no untoward events. The options for treatment were explained in detail, this included PT, medications, injections, lifestyle modifications and exercise. The patient presents to clinic for medication evaluation and management. The patient is stable on their current medication regimen and endorses adequate analgesia, increased ADLs, denies abuse and side effects. A bowel regimen was discussed with the patient. 06/26/2024 Low back pain, unspecified (ICD-10 - M54.50) 07/24/2024 Chronic pain syndrome (ICD-10 - G89.4) Patient presents today for reevaluation. At last visit, we had trialed Fentanyl patches as she's having extreme difficulties filling her Morphine. She reports that her trial of the Fentanyl patches gave her inadequate pain control, and she is not interested in pursuing the Fentanyl patches anymore at this time. We discussed extensively other options. She's had reactions to Methadone before in the past. She's tried Oxycodone while in the hospital and also had a reaction to it. She denies any reactions to Hydrocodone. PDMP reviewed with no untoward events. I will send her a 3 week trial of the Hydrocodone 10/325 up to four tablets per day and see her back then with a UDS confirmation. 08/23/2024 Chronic pain syndrome (ICD-10 - G89.4) I had a nice discussion with the patient today regarding her chronic pain complaints. She states she is doing reasonably well on the hydrocodone. She does feel the morphine helped her better but she is tolerating this whereas she has not tolerated other things that have been tried. She reports her methocarbamol is helping but she feels the pill is too big causing her to choke therefore she has not been taking it very often. She is requesting to try something with a smaller pill. Sounds like a lot of the muscle relaxers have not helped her much. She states she has not tried tizanidine so we will try tizanidine 4 mg 3/day. She is having to hold off on any procedures right now she has an infection in her knee. She states she is on her third round of antibiotics. I did discuss lifestyle modifications as well as a bowel regimen. She denies any other changes in her health since we last seen her. She will continue her medication at present level and return to clinic in 1 month to monitor for treatment effectiveness and compliance. The patient continues with chronic pain requiring treatment to help restore function and improve quality of life. Risks of opioid therapy as well as interaction of opioids with alcohol, illicit drugs, muscle relaxers, and other sedative medications are reviewed briefly with patient again today. The patient has trialed all other reasonable treatment options and uses the medication to alleviate pain in order to remain active and rest with less pain. No clinically relevant medication side effects are noted. Last UDS and [place] LBD TEACHER reviewed today. Patient is advised that best long-term goals include increased activity, core strengthening, proper weight management, coping strategies, avoidance of painful triggers, and targeted interventional therapy. We will see the patient for routine follow up in accordance with all clinic policies. We did remind patient today of current guidelines to decrease opioid when possible. We will continue to stress nonopioid treatment. RECOMMEND URINE TESTING TODAY Urine drug screening will be performed today to monitor compliance with opioid therapy or to serve as a baseline screen for a patient who may be a candidate for opioid therapy in the future, pending UDS results. We will monitor with in-office testing (rapid testing) today and review the results prior to dispensing prescription. All positive results will be sent for quantitative analysis to ensure accuracy and quantify amounts. Any expected positive results that return negative will also be sent for quantitative analysis. Any questionable read or any medication we cannot test for in the office confidently will be sent for quantitative analysis, as well. Patient has been made aware of this policy and agrees to abide by our urine testing policy. 08/23/2024 Lumbosacral spondylosis (ICD-10 - M47.817) 08/23/2024 Low back pain, unspecified (ICD-10 - M54.50) 01/26/2024 Chronic pain syndrome (ICD-10 - G89.4) 07/24/2024 Low back pain, unspecified (ICD-10 - M54.50) 06/26/2024 Pain in left knee (ICD-10 - M25.562) 05/01/2024 Pain in left knee (ICD-10 - M25.562) 03/14/2024 Pain in left knee (ICD-10 - M25.562) 01/26/2024 Pain in left knee (ICD-10 - M25.562) Patient is a 63-year-old female with past medical history of hypertension, type 2 diabetes, peripheral vascular disease, COPD, KARY, CKD, GERD, fibromyalgia, bipolar disorder, ADHD, nicotine dependence, and chronic pain syndrome, presenting today as a referral from Dr. Edith Jamison to establish care. Patient today is primarily complaining of low back, left knee, and bilateral hand pain, with the worse of her pain in her low back. Patient reports history of low back pain for many years which has gradually progressed since 2020. She also reports extensive history of prior left knee surgeries with her last left knee surgery in 01/2019. Patient's pain up to this point has been largely unresponsive to conservative management including, medications and physical therapy. Her pain was previously managed with morphine IR 50 mg TID which she reports was prescribed by her previous pain management provider in [place], [place]. We do not have her prior pain management records at this visit. On evaluation today, her pain is likely multi-factoria l in etiology with evidence of facetogenic, neuropathic, nociplastic, and myofascial elements on exam. Discussed treatment options with the patient. Given that the patient has not had any recent imaging of her back, we will plan on obtaining updated imaging today. We will also plan on continuing her previously tolerated morphine IR 15 mg up to 3 times/day, as this has been very effective in controlling her pain up to this point. All patient questions were addressed and answered. We will plan to have the patient follow up in [address] Pulido in [place], [place] where the patient resides. 01/26/2024 Hand pain, left (ICD-10 - M79.642) Patient is a 63-year-old female with past medical history of hypertension, type 2 diabetes, peripheral vascular disease, COPD, KARY, CKD, GERD, fibromyalgia, bipolar disorder, ADHD, nicotine dependence, and chronic pain syndrome, presenting today as a referral from Dr. Edith Jamison to establish care. Patient today is primarily complaining of low back, left knee, and bilateral hand pain, with the worse of her pain in her low back. Patient reports history of low back pain for many years which has gradually progressed since 2020. She also reports extensive history of prior left knee surgeries with her last left knee surgery in 01/2019. Patient's pain up to this point has been largely unresponsive to conservative management including, medications and physical therapy. Her pain was previously managed with morphine IR 50 mg TID which she reports was prescribed by her previous pain management provider in [place], [place]. We do not have her prior pain management records at this visit. On evaluation today, her pain is likely multi-factoria l in etiology with evidence of facetogenic, neuropathic, nociplastic, and myofascial elements on exam. Discussed treatment options with the patient. Given that the patient has not had any recent imaging of her back, we will plan on obtaining updated imaging today. We will also plan on continuing her previously tolerated morphine IR 15 mg up to 3 times/day, as this has been very effective in controlling her pain up to this point. All patient questions were addressed and answered. We will plan to have the patient follow up in [address] Pulido in [place], [place] where the patient resides. 03/14/2024 Fibromyalgia (ICD-10 - M79.7) 05/01/2024 Fibromyalgia (ICD-10 - M79.7) 06/26/2024 Fibromyalgia (ICD-10 - M79.7) 07/24/2024 Pain in left knee (ICD-10 - M25.562) 08/23/2024 Pain in left knee (ICD-10 - M25.562) 08/23/2024 Fibromyalgia (ICD-10 - M79.7) 07/24/2024 Fibromyalgia (ICD-10 - M79.7) 06/26/2024 Hand pain, left (ICD-10 - M79.642) 05/01/2024 Hand pain, left (ICD-10 - M79.642) 03/14/2024 Hand pain, left (ICD-10 - M79.642) 01/26/2024 Hand pain, right (ICD-10 - M79.641) Patient is a 63-year-old female with past medical history of hypertension, type 2 diabetes, peripheral vascular disease, COPD, KARY, CKD, GERD, fibromyalgia, bipolar disorder, ADHD, nicotine dependence, and chronic pain syndrome, presenting today as a referral from Dr. Edith Jamison to establish care. Patient today is primarily complaining of low back, left knee, and bilateral hand pain, with the worse of her pain in her low back. Patient reports history of low back pain for many years which has gradually progressed since 2020. She also reports extensive history of prior left knee surgeries with her last left knee surgery in 01/2019. Patient's pain up to this point has been largely unresponsive to conservative management including, medications and physical therapy. Her pain was previously managed with morphine IR 50 mg TID which she reports was prescribed by her previous pain management provider in [place], [place]. We do not have her prior pain management records at this visit. On evaluation today, her pain is likely multi-factoria l in etiology with evidence of facetogenic, neuropathic, nociplastic, and myofascial elements on exam. Discussed treatment options with the patient. Given that the patient has not had any recent imaging of her back, we will plan on obtaining updated imaging today. We will also plan on continuing her previously tolerated morphine IR 15 mg up to 3 times/day, as this has been very effective in controlling her pain up to this point. All patient questions were addressed and answered. We will plan to have the patient follow up in [address] Pulido in [place], [place] where the patient resides. 01/26/2024 Fibromyalgia (ICD-10 - M79.7) Patient is a 63-year-old female with past medical history of hypertension, type 2 diabetes, peripheral vascular disease, COPD, KARY, CKD, GERD, fibromyalgia, bipolar disorder, ADHD, nicotine dependence, and chronic pain syndrome, presenting today as a referral from Dr. Edith Jamison to establish care. Patient today is primarily complaining of low back, left knee, and bilateral hand pain, with the worse of her pain in her low back. Patient reports history of low back pain for many years which has gradually progressed since 2020. She also reports extensive history of prior left knee surgeries with her last left knee surgery in 01/2019. Patient's pain up to this point has been largely unresponsive to conservative management including, medications and physical therapy. Her pain was previously managed with morphine IR 50 mg TID which she reports was prescribed by her previous pain management provider in [place], [place]. We do not have her prior pain management records at this visit. On evaluation today, her pain is likely multi-factoria l in etiology with evidence of facetogenic, neuropathic, nociplastic, and myofascial elements on exam. Discussed treatment options with the patient. Given that the patient has not had any recent imaging of her back, we will plan on obtaining updated imaging today. We will also plan on continuing her previously tolerated morphine IR 15 mg up to 3 times/day, as this has been very effective in controlling her pain up to this point. All patient questions were addressed and answered. We will plan to have the patient follow up in [address] Pulido in [place], [place] where the patient resides. 03/14/2024 Hand pain, right (ICD-10 - M79.641) 05/01/2024 Hand pain, right (ICD-10 - M79.641) 06/26/2024 Hand pain, right (ICD-10 - M79.641) 07/24/2024 Hand pain, left (ICD-10 - M79.642) 08/23/2024 Hand pain, left (ICD-10 - M79.642) 08/23/2024 Hand pain, right (ICD-10 - M79.641) 07/24/2024 Hand pain, right (ICD-10 - M79.641) 06/26/2024 Antalgic gait (ICD-10 - R26.89) 05/01/2024 Antalgic gait (ICD-10 - R26.89) 03/14/2024 Antalgic gait (ICD-10 - R26.89) 01/26/2024 Antalgic gait (ICD-10 - R26.89) Patient is a 63-year-old female with past medical history of hypertension, type 2 diabetes, peripheral vascular disease, COPD, KARY, CKD, GERD, fibromyalgia, bipolar disorder, ADHD, nicotine dependence, and chronic pain syndrome, presenting today as a referral from Dr. Edith Jamison to establish care. Patient today is primarily complaining of low back, left knee, and bilateral hand pain, with the worse of her pain in her low back. Patient reports history of low back pain for many years which has gradually progressed since 2020. She also reports extensive history of prior left knee surgeries with her last left knee surgery in 01/2019. Patient's pain up to this point has been largely unresponsive to conservative management including, medications and physical therapy. Her pain was previously managed with morphine IR 50 mg TID which she reports was prescribed by her previous pain management provider in [place], [place]. We do not have her prior pain management records at this visit. On evaluation today, her pain is likely multi-factoria l in etiology with evidence of facetogenic, neuropathic, nociplastic, and myofascial elements on exam. Discussed treatment options with the patient. Given that the patient has not had any recent imaging of her back, we will plan on obtaining updated imaging today. We will also plan on continuing her previously tolerated morphine IR 15 mg up to 3 times/day, as this has been very effective in controlling her pain up to this point. All patient questions were addressed and answered. We will plan to have the patient follow up in [address] Pulido in [place], [place] where the patient resides. 01/26/2024 long term care pharmacist (current) use of opiate analgesic (ICD-10 - Z79.891) Patient is a 63-year-old female with past medical history of hypertension, type 2 diabetes, peripheral vascular disease, COPD, KARY, CKD, GERD, fibromyalgia, bipolar disorder, ADHD, nicotine dependence, and chronic pain syndrome, presenting today as a referral from Dr. Edith Jamison to establish care. Patient today is primarily complaining of low back, left knee, and bilateral hand pain, with the worse of her pain in her low back. Patient reports history of low back pain for many years which has gradually progressed since 2020. She also reports extensive history of prior left knee surgeries with her last left knee surgery in 01/2019. Patient's pain up to this point has been largely unresponsive to conservative management including, medications and physical therapy. Her pain was previously managed with morphine IR 50 mg TID which she reports was prescribed by her previous pain management provider in [place], [place]. We do not have her prior pain management records at this visit. On evaluation today, her pain is likely multi-factoria l in etiology with evidence of facetogenic, neuropathic, nociplastic, and myofascial elements on exam. Discussed treatment options with the patient. Given that the patient has not had any recent imaging of her back, we will plan on obtaining updated imaging today. We will also plan on continuing her previously tolerated morphine IR 15 mg up to 3 times/day, as this has been very effective in controlling her pain up to this point. All patient questions were addressed and answered. We will plan to have the patient follow up in [address] Pulido in [place], [place] where the patient resides. 03/14/2024 long term care pharmacist (current) use of opiate analgesic (ICD-10 - Z79.891) RECOMMEND URINE TESTING TODAYUrine drug screening will be performed today to monitor compliance with opioid therapy or to serve as a baseline screen for a patient who may be a candidate for opioid therapy in the future, pending UDS results. We will monitor with in-office testing (rapid testing) today and review the results prior to dispensing prescription. All positive results will be sent for quantitative analysis to ensure accuracy and quantify amounts. Any expected positive results that return negative will also be sent for quantitative analysis. Any questionable read or any medication we cannot test for in the office confidently will be sent for quantitative analysis, as well. Patient has been made aware of this policy and agrees to abide by our urine testing policy. 05/01/2024 detention (current) use of opiate analgesic (ICD-10 - Z79.891) RECOMMEND URINE TESTING TODAYUrine drug screening will be performed today to monitor compliance with opioid therapy or to serve as a baseline screen for a patient who may be a candidate for opioid therapy in the future, pending UDS results. We will monitor with in-office testing (rapid testing) today and review the results prior to dispensing prescription. All positive results will be sent for quantitative analysis to ensure accuracy and quantify amounts. Any expected positive results that return negative will also be sent for quantitative analysis. Any questionable read or any medication we cannot test for in the office confidently will be sent for quantitative analysis, as well. Patient has been made aware of this policy and agrees to abide by our urine testing policy. 06/26/2024 Lumbosacral spondylosis (ICD-10 - M47.817) 07/24/2024 Antalgic gait (ICD-10 - R26.89) 08/23/2024 Antalgic gait (ICD-10 - R26.89) 08/23/2024 Lumbosacral spondylosis (ICD-10 - M47.817) 07/24/2024 Lumbosacral spondylosis (ICD-10 - M47.817) 06/26/2024 Post laminectomy syndrome (ICD-10 - M96.1) 05/01/2024 Lumbosacral spondylosis (ICD-10 - M47.817) Patient has imaging, history, and physical exam consistent with pain generated from spondylosis of the lumbar region. Patient has tried conservative measures including medication with limited benefit and physical therapy and is currently undergoing a home exercise regimen. Imaging studies suggest no other obvious cause of pain (such as fracture, tumor, infection, or significant extraspinal lesion. They have had a decrease in their quality of life as a result of this pain. This pain is impairing their ability to perform ADLs and care for their family. This pain is also interfering with their ability to work. They now have had to increase their medication use. It is medically necessary to proceed with this procedure, risks and expectations of the procedures were discussed with the patient and they agreed to proceed. The patient understands that this is a diagnostic block. The options for treatment were explained in detail, this included PT, medications, injections, lifestyle modifications and exercise. Will proceed with Bilateral L4/L5 and L5/S1 Medial Branch Blocks with sedation, if more than 80% relief of pain and/or function it will be medically necessary to proceed with Bilateral L4/L5 and L5/S1 medial branch RFTC The aforementioned procedure is medically necessary to be performed with minimal sedation. This sedation is necessary to ensure patient comfort and cooperation, while also minimizing anxiety and discomfort. 06/26/2024 Migraine without aura and without status migrainosus, not intractable (ICD-10 - G43.009) 07/24/2024 Post laminectomy syndrome (ICD-10 - M96.1) 08/23/2024 Post laminectomy syndrome (ICD-10 - M96.1) 08/23/2024 Migraine without aura and without status migrainosus, not intractable (ICD-10 - G43.009) 07/24/2024 Migraine without aura and without status migrainosus, not intractable (ICD-10 - G43.009) 06/26/2024 long term care pharmacist (current) use of opiate analgesic (ICD-10 - Z79.891) 07/24/2024 detention (current) use of opiate analgesic (ICD-10 - Z79.891) 08/23/2024 detention (current) use of opiate analgesic (ICD-10 - Z79.891) 01/26/2024 Other Interventional Therapy: -Consider Lumbar MBB/RFA in the future for suspected facetogenic pain pending review of imaging and medical records -Consider repeating LEFT GNB/RFA in the future for chronic left knee pain -Education provided regarding relevant anatomy, potential interventions, and pain generators. Medications: -Will resume Morphine IR 15 mg Q8 hours PRN #90, no refills -Continue Duloxetine 120 mg daily as previously prescribed -Would defer starting oral NSAID in the setting of CKD and concurrent blood thinner use (Eliquis). -[place] and [place] PDMP reviewed and consistent with patient history -Will obtain UDS today -Continue current medication management as per primary -Medications pertinent to purpose of this visit reviewed Imaging/Diagnostic Tests: -Will order XR of the lumbar spine (AP/Lat/Flex/Ex) -Will request previous pain management records from [place], [place] ([facility]-Dr. Harish Farris) -Reviewed relevant imaging and answered questions as presented. Therapy: -Consider PT/OT/HEP once pain becomes more tolerable Referrals: -Follow up with your PCP Follow-up: -RTC: [address] Pulido in [place], [place] where patient resides. Melissa White, am scribing for Dr. Flannery. I, Dr. Flannery, personally performed the services described in this documentation, as scribed by Melissa Mendieta, and it is both accurate and complete. Patient is a 63-year-old female with past medical history of hypertension, type 2 diabetes, peripheral vascular disease, COPD, KARY, CKD, GERD, fibromyalgia, bipolar disorder, ADHD, nicotine dependence, and chronic pain syndrome, presenting today as a referral from Dr. Edith Jamison to establish care. Patient today is primarily complaining of low back, left knee, and bilateral hand pain, with the worse of her pain in her low back. Patient reports history of low back pain for many years which has gradually progressed since 2020. She also reports extensive history of prior left knee surgeries with her last left knee surgery in 01/2019. Patient's pain up to this point has been largely unresponsive to conservative management including, medications and physical therapy. Her pain was previously managed with morphine IR 50 mg TID which she reports was prescribed by her previous pain management provider in [place], [place]. We do not have her prior pain management records at this visit. On evaluation today, her pain is likely multi-factoria l in etiology with evidence of facetogenic, neuropathic, nociplastic, and myofascial elements on exam. Discussed treatment options with the patient. Given that the patient has not had any recent imaging of her back, we will plan on obtaining updated imaging today. We will also plan on continuing her previously tolerated morphine IR 15 mg up to 3 times/day, as this has been very effective in controlling her pain up to this point. All patient questions were addressed and answered. We will plan to have the patient follow up in [address] Pulido in [place], [place] where the patient resides. 05/01/2024 Isabella Elise am scribing for Dr. Pulido. Dr. Ashok White, personally performed the services described in this documentation, as scribed by Isabella Robison, and it is both accurate and complete. 06/26/2024 Isabella Elise am scribing for Dr. Pulido. Dr. Ashok White, personally performed the services described in this documentation, as scribed by Isabella Robison, and it is both accurate and complete. 07/24/2024 Isabella Elise am scribing for Dr. Pulido. Dr. Ashok White, personally performed the services described in this documentation, as scribed by Isabella Robison, and it is both accurate and complete. Plan Of Treatment Pending Test Test Name Order Date Facet Inj. / MBB Lumbar/Sacral, 2 levels - [id number], [id number] 07/18/2024 Future Test Test Name Order Date Facet Inj. / MBB Lumbar/Sacral, 2 levels - [id number], [id number] 06/07/2024 Next Appt Details Provider Name:Edith Mccord Baraksree ann, 09/20/2024 02:00:00 PM, [address] [place], [address], Insurance Providers Payer Name Payer Address Payer Phone Subscriber Number Group Number Insured Name Patient Relationship to Insured Coverage Start Date Coverage End Date UHC Medicare Dual Complete PPO [address] [address] [place] [address] [id number] Ely Baron Self - patient is the insured [place] Medicaid [address] [place] [address] [phone] [id number] Ely Baron Self - patient is the insured Medical (General) History Medical History History ICD Code jointpain/arthritis Blood clots COPD/Emphysema Reflux Insomnia Diabetes Depression/Anxiety Surgical History Surgery Date(Month/Year) Left total knee replacement 2018 Knee replacement removed due to infectio n 2019 Multiple knee surgeries Hospitalization History Reason Date(Month/Year) See Surgical HX
--- NOTE | 2024-09-10 03:57 | XRR_ITS ---
PROCEDURE INFORMATION: Exam: XR Left Knee Exam date and time: 09/10/2024 4:47 AM Age: 64 years old Clinical indication: Swelling or effusion of joint; Prior surgery; Surgery date: 6+ months; Surgery type: Tka; C/O worsening pain and swelling with redness to left knee. History of septic joint. CT of left lower ext performed on 09/07/2024. TECHNIQUE: Imaging protocol: Radiologic exam of the left knee. Views: 3 views. COMPARISON: CT lower leg LT wo con* [id number] 09/07/2024 10:00 AM FINDINGS: Bones/joints: The patient has a left knee prosthesis. The femoral and tibial components appear in satisfactory position. There is no acute fracture or dislocation. If symptoms of possible fracture persist, follow-up imaging in several days may be useful to exclude an occult or subtle fracture. Soft tissues: No definite evidence for knee joint effusion by plain radiographs. There appears to be some diffuse soft tissue prominence/swelling. No definite/visible soft tissue gas. XR/XR knee LT 3V* [id number] IMPRESSION: 1. Left knee prosthesis. 2. No acute fracture or dislocation. 3. Other details discussed above.
[2024-09-10 04:36] VITALS: BP 181/95; PULSE 89; RESP 16; O2SAT 94
--- NOTE | 2024-09-10 04:55 | W.ED.EXTPRO ---
HPI - Extremity Problem General: Chief complaint: Extremity Problem,Nontraumatic Stated complaint: Absess LT knee Time Seen by Provider: 09/10/24 03:57 History of Present Illness: 64-year-old female presents to the emergency room concerned about an abscess in her left knee. She states this began in June of this year she still has a small amount of drainage from 1 area of the superior portion of the incision from previous knee arthroplasty. She had a CT done 3 days ago which is on the chart that did not find any abscesses however it was done without IV contrast. She is not currently on any antibiotics. She has a history of DVTs and is on Eliquis at 2.5 mg twice daily. No chest pain or shortness of breath. Associated symptoms: Deny chest pain, fever(s) or rash Related Data Home Medications ?Medication ?Instructions ?Recorded ?Confirmed albuterol sulfate 90 mcg/actuation 1 puff inhalation Q4H PRN copd 12/11/23 08/30/24 aerosol inhaler furosemide 20 mg tablet 20 mg PO DAILY 12/11/23 08/30/24 morphine 15 mg immediate release 15 mg PO TID Pain 02/23/24 08/30/24 tablet hydrocodone 10 mg-acetaminophen 1 tab PO Q6H PRN 08/16/24 08/30/24 325 mg tablet methocarbamol 750 mg tablet 750 mg PO TID 08/16/24 08/30/24 Previous Rx's ?Medication ?Instructions ?Recorded DME: Ramon #1 ea 12/16/23 apixaban 2.5 mg tablet (Eliquis) 2.5 mg PO BID #180 tabs 02/23/24 duloxetine 60 mg capsule,delayed 120 mg (2 x 60 mg) PO DAILY #180 02/23/24 release sprinkle caps fluticasone furoate 100 1 inh inhalation DAILY #180 ea 02/23/24 mcg-vilanterol 25 mcg/dose inhalation powder (Breo Ellipta) insulin glargine 100 unit/mL (3 36 unit (0.36 mL) SUBCUT DAILY #45 02/23/24 mL) subcutaneous pen (Basaglar mL KwikPen U-100 Insulin) Held on 05/17/24. Instructions: Doctor's Order tirzepatide 15 mg/0.5 mL 15 mg (0.5 mL) SUBCUT .qw #2 mL 05/17/24 subcutaneous pen injector (Sarahi) pen needle, diabetic 31 gauge x #100 ea 06/20/2406/22 blood-glucose sensor (Dexcom G7 #9 ea 08/16/24 Sensor device) cefadroxil 500 mg capsule 1,000 mg (2 x 500 mg) PO BID #180 08/16/24 caps doxycycline hyclate 100 mg capsule 100 mg PO BID 10 days #20 caps 08/16/24 lisdexamfetamine 50 mg capsule 50 mg PO DAILY 30 days #30 caps 08/16/24 (Vyvanse) losartan 100 mg tablet 100 mg PO DAILY #90 tabs 08/16/24 omeprazole 40 mg capsule,delayed 40 mg PO DAILY #90 caps 08/16/24 release pramipexole 1 mg tablet 1.5 mg (1.5 x 1 mg) PO DAILY #135 08/16/24 tabs rosuvastatin 10 mg tablet 10 mg PO DAILY #90 tabs 08/16/24 topiramate 100 mg tablet 100 mg PO DAILY #90 tabs 08/16/24 Allergies Allergy/AdvReac Type Severity Reaction Status Date / Time acetaminophen (From Tylenol) Allergy Unknown Verified 08/20/24 07:13 divalproex sodium (From Allergy Unknown Verified 08/20/24 07:13 Depakote) lamotrigine Allergy ALGY-Bliste Verified 08/20/24 07:13 r oxycodone Allergy Unknown Verified 08/20/24 07:13 tobramycin (From Tobrex) Allergy Unknown Verified 08/20/24 07:13 Review of Systems Const: Denies: fever(s) or chills Card: Denies: chest pain Resp: Denies: dyspnea GI: Denies: abdominal pain : Denies: dysuria, urinary frequency or urinary urgency Musc: Denies: neck pain or back pain Skin/Breast: Denies: rash PFSH ED PFSH: Medical History Chronic venous insufficiency of lower extremity Abscess of knee, left Chronic pain of left knee has had 2 replacements and then plastic replacement; hx of infection; Staph aureus infection Screening for lung cancer [place]; next due one year Osteoarthritis 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 Neuropathy ADHD (attention deficit hyperactivity disorder) History of recurrent deep vein thrombosis has hx of 2 Chronic anticoagulation eliquis for recurrent DVTs Chronic ulcer of left leg GERD with esophagitis COPD (chronic obstructive pulmonary disease) Hypertension Hypercholesterolemia Bipolar disorder Nicotine dependence, cigarettes, uncomplicated Type 2 diabetes mellitus Fibromyalgia Surgical History Hx of vein stripping Left leg vein stripped and glued History of shoulder surgery left Hx of colonoscopy History of knee replacement L knee has been replaced 2 times 01/25--got infected and subsequently had multiple knee surgeries and total of 3 replacements H/O sinus surgery x2 Hx of hysterectomy age 37; with RSO and few years later had LSO--no cancer; H/O tubal ligation Family History Father No problems noted. Mother Cancer Diabetes mellitus, type 2 Social History Smoking and tobacco/nicotine status: current every day tobacco/nicotine user cigarettes Packs smoked per day: 0.5 Alcohol intake: current Alcohol intake frequency: holidays/special occasions only Alcohol type: other Substance/Drug Use: current Substance/Drug use frequency: few times a month Household members: none Marital status: Number of children: 4 Highest education level completed: GED or Equivalent Previous occupational history: worked at [employer], [employer], other jobs; disability for fibromyalgia Physical Exam Const: COMMON NORMALS: no acute distress GENERAL APPEARANCE: cooperative and comfortable ORIENTATION/CONSCIOUSNESS: Yes awake, Yes oriented to person, Yes oriented to place and Yes oriented to time HENMT: COMMON NORMALS: normocephalic, atraumatic and hearing grossly normal bilaterally HEAD & SCALP: normocephalic and atraumatic Resp: COMMON NORMALS: normal respiratory effort, No retractions, No use of accessory muscles and clear to auscultation bilaterally AUSCULTATION: clear to auscultation bilaterally Cardio: COMMON NORMALS: regular rate, regular rhythm and No murmurs present (Cardio) RATE: regular rate RHYTHM: regular rhythm Extremity: OTHER: Examination of the left knee there is a bandage on the knee removed there is a small amount of thick purulent drainage from punctate area that is open on the superior aspect of the incision from a knee arthroplasty. Legs bilaterally have 2+ edema. She complains of exquisite pain to touch in the right lower leg. There is evidence of chronic pitting edema 2+. Years some mild induration around the ankle and distal lower leg but none at the knee itself no redness or erythema around the knee joint itself. Neuro: SENSORIUM/ORIENTATION: Yes oriented to person, Yes oriented to place and Yes oriented to time Skin: COMMON NORMALS: no rashes or lesions noted GENERAL SKIN EXAM: no rashes or lesions noted Course Vital Signs: Vital signs: Vital Signs Temperature 98.2 F 09/10/24 03:45 Pulse Rate 89 09/10/24 04:36 Respiratory Rate 16 09/10/24 04:36 Blood Pressure 181/95 09/10/24 04:36 Pulse Oximetry 94 09/10/24 04:36 Oxygen Delivery Me thod Room Air 09/10/24 04:36 MDM - Extremity (Nontraumatic) Medical Decision Making Reviewed the CT no finding of abscess noted on there. Her white count is normal her CRP is only minimally elevated. X-ray did not show any acute abnormality discharge patient home she has follow-ups with [facility] [place] for her knee and she tells me they are trying to get her set up with [facility] we had suggested but she said that she has already been referred there but Dr. Hanna. At this point I do not think she has any active infection that would require inpatient treatment and she is currently on cefadroxil which she tells me she is supposed to be on for an extended period of time. She can follow that up with Dr. Cameron. Medical Records I reviewed the patient's medical records. Lab Data I reviewed the patient's lab results. 09/10/24 05:29 Radiology Impressions Knee X-Ray 09/10/24 03:57 IMPRESSION: 1. Left knee prosthesis. 2. No acute fracture or dislocation. 3. Other details discussed above. Laboratory Results WBC 7.55 10^3/uL (3.29-11.43) 09/10/24 05:29 RBC 4.27 10^6/uL (3.85-5.65) 09/10/24 05:29 Hgb 12.00 g/dL (11.27-16.99) 09/10/24 05:29 Hct 38.3 % (36-47) 09/10/24 05:29 MCV 89.7 fl (85-98) 09/10/24 05:29 MCH 28.1 pg (27-33) 09/10/24 05:29 MCHC 31.3 g/dL (30-55) 09/10/24 05:29 RDW 14.2 % (12.1-15.1) 09/10/24 05:29 Plt Count 185 10^3/cmm (157-399) 09/10/24 05:29 MPV 10.7 fL (7.4-10.4) H 09/10/24 05:29 Neut % (Auto) 64.9 % 09/10/24 05:29 Lymph % (Auto) 26.0 % 09/10/24 05:29 [place] % (Auto) 7.3 % 09/10/24 05:29 Eos % (Auto) 1.3 % 09/10/24 05:29 Baso % (Auto) 0.4 % 09/10/24 05:29 Neut # (Auto) 4.90 10^3/uL (1.8-7.7) 09/10/24 05:29 Lymph # (Auto) 2.0 10^3/uL (0.8-4.8) 09/10/24 05:29 [place]ks # (Auto) 0.6 10^3/uL (0.2-0.9) 09/10/24 05:29 Eos # (Auto) 0.1 10^3/uL (0.0-0.8) 09/10/24 05:29 Baso # (Auto) 0.0 10^3/uL (0.0-0.1) 09/10/24 05:29 Nucleated RBC % (auto) 0 % 09/10/24 05:29 Nucleated RBCs # 0.0 /100WBC 09/10/24 05:29 C-Reactive Protein 8.2 mg/L (0.0-4.9) H 09/10/24 05:29 All radiology interpretation(s) finalized by discharge Discharge Plan Discharge Patient Disposition: Home Clinical Impression: Chronic anticoagulation Chronic ulcer of left leg Qualifiers: Non-pressure ulcer stage: unspecified non-pressure ulcer stage Qualified Code(s): L97.929 - Non-pressure chronic ulcer of unspecified part of left lower leg with unspecified severity Condition: Stable Prescriptions: No Action hydrocodone-acetaminophen 10-325 mg tablet 1 tab PO Q6H PRN methocarbamol 750 mg tablet 750 mg PO TID (DME) Dexcom G7 Sensor Device See Rx Instructions .Route Qty: 9 3RF Rx Instructions: As directed cefadroxil 500 mg capsule 1,000 mg PO BID Qty: 180 1RF lisdexamfetamine [Vyvanse] 50 mg capsule 50 mg PO DAILY 30 Days Qty: 30 0RF losartan 100 mg tablet 100 mg PO DAILY Qty: 90 3RF omeprazole 40 mg capsule,delayed release(DR/EC) 40 mg PO DAILY Qty: 90 3RF rosuvastatin 10 mg tablet 10 mg PO DAILY Qty: 90 3RF pramipexole 1 mg tablet 1.5 mg PO DAILY Qty: 135 3RF topiramate 100 mg tablet 100 mg PO DAILY Qty: 90 3RF doxycycline hyclate 100 mg capsule 100 mg PO BID 10 Days Qty: 20 0RF morphine 15 mg tablet 15 mg PO TID fluticasone furoate-vilanterol [Breo Ellipta] 100-25 mcg/dose blister with device 1 inh INHALATION DAILY Qty: 180 1RF duloxetine 60 mg capsule, delayed rel sprinkle 120 mg PO DAILY Qty: 180 1RF insulin glargine [Basaglar KwikPen U-100 Insulin] 100 unit/mL (3 mL) insulin pen 36 unit SUBCUT DAILY Qty: 45 1RF Eliquis 2.5 mg tablet 2.5 mg PO BID Qty: 180 1RF Mounjaro 15 mg/0.5 mL pen injector 15 mg SUBCUT .qw Qty: 2 5RF (DME) DME: [facility] See Rx Instructions .Route Qty: 1 0RF Rx Instructions: As directed (DME) pen needle, diabetic 31 gauge x 5/16 needle See Rx Instructions .ROUTE .COMPLEX Qty: 100 3RF Dose Instruction: USE DIRECTED Rx Instructions: USE DIRECTED furosemide 20 mg Tablet 20 mg PO DAILY albuterol sulfate [ProAir HFA] 90 mcg/actuation Hfa Aerosol Inhaler 1 puff INHALATION Q4H PRN (Reason: copd) Discharge Orders: Discharge ED (Routine); Ordered 09/10/24 Ordered By: Aditya Badillo Referrals: Cindy Zhao MD [Primary Care Provider, Family Practice] Patient Instructions: Opioid Safety, Pain Management, Patient Portal & [facility] Instructions Activity Restrictions/Additional Instructions: Thank you for choosing [facility] for your healthcare needs today. It is very important that you follow up as instructed or that you return to the Emergency Department should you have concerns or if your condition changes or worsens in any way. You were seen today with concerns about an infection CT that you done last week did not show any abscess formation on the CT. The ultrasound done today showed a superficial thrombi that were chronic but no new acute deep vein thrombosis. Recommend you keep your appointments with Dr. Estes and Dr. Zamarripa. Print Language: Chinese Coding Level of Care Code ED Color Developer for Juan Manuel Horne
--- NOTE | 2024-09-10 05:08 | USCV_ITS ---
Lacy Baron Age: 64 Gender: F : 1960 Exam Date: 09/10/2024 05:36 Ordering Phys: Aditya Badillo DO Technologist: Exam Location: [facility] – [place] Indication: lt leg pain and swelling PROCEDURES: Venous duplex imaging was performed in only the left lower extremity. The following venous structures were evaluated: common femoral vein, profunda vein, proximal portion of the greater saphenous vein, superficial femoral vein, and the popliteal vein. In addition, the posterior tibial and peroneal trunk were evaluated. FINDINGS: Normal 2-D Doppler and augmentation and compressibility throughout the lower extremity venous structures. Additional imaging through the proximal calf veins also reveals no thrombus. Limited evaluation of the greater saphenous vein is patent with no thrombus. There is subcutaneous left lower extremity edema noted. CONCLUSIONS No DVT left lower extremity. Dr. Maria Del Carmen Lay DO (Electronically Signed) Final Date: 10 September 2024 08:58 S
[2024-09-10 06:00] LABS: Hematocrit 38.3 % (36-47); Hemoglobin 12.00 g/dL (11.27-16.99); Mean Corpuscular HGB Conc 31.3 g/dL (30-55); Mean Corpuscular Hemoglobin 28.1 pg (27-33); Mean Corpuscular Volume 89.7 fl (85-98); Nucleated Red Blood Cells % 0 %; Platelet Count 185 10^3/cmm (157-399); Red Blood Count 4.27 10^6/uL (3.85-5.65); White Blood Count 7.55 10^3/uL (3.29-11.43)
--- NOTE | 2024-09-10 07:14 | PC.NURSE ---
ASSUMED CARE OF PATIENT FROM [facility] AT 0700.
== END 2024-09-10 07:15 | disposition home or self-care (01) ==
PROVIDERS: Emergency Provider Family Medicine; PCP Family Medicine
DX: L97.929 Non-pressure chronic ulcer of unspecified part of left lower leg with unspecified severity (principal); Z79.01 Long term (current) use of anticoagulants; F17.210 Nicotine dependence, cigarettes, uncomplicated; J44.9 Chronic obstructive pulmonary disease, unspecified; E11.9 Type 2 diabetes mellitus without complications; I10 Essential (primary) hypertension
CPT/HCPCS: 36415; 73562; 85025; 86140; 93971; 99284

== ENCOUNTER 2024-09-18 15:14 | Outpatient (CLI) | payer OTHER, MEDICAID, SELFPAY ==
--- NOTE | 2024-09-18 15:15 | MR_ITS ---
WS: [id number] MRI LUMBAR SPINE NONCONTRAST HISTORY: back pain COMPARISON: None available. TECHNIQUE: Sagittal and axial multisequence imaging is submitted. Normal lumbar alignment with no compression fractures or marrow edema. Disc spaces and vertebral body heights are well-preserved. Conus terminates normally at L1-2 disc level. L1-L2: Mild bilateral facet arthritis. No disc protrusion or stenosis. L2-L3: Mild annular disc bulging with bilateral facet arthritis. Mild central and subarticular recess encroachment. Mild RIGHT foraminal stenosis. L3-L4: Diffuse disc bulging with osteophytic ridging and facet arthritis. Small central disc protrusion. Mild central, subarticular recess and RIGHT foraminal stenosis. There is mild disc contact on the traversing L4 nerve roots and the RIGHT exiting L3 nerve root. L4-L5: Diffuse disc bulging with osteophytic ridging and moderate facet arthritis. Mild disc contact on the traversing L5 nerve roots in the subarticular recesses. Mild bilateral foraminal stenosis, LEFT greater than RIGHT. L5-S1: Mild disc bulging and facet arthritis. Mild LEFT foraminal stenosis. No paravertebral soft tissue abnormalities. MR/MR lumbar spine wo con* [id number] IMPRESSION: 1. MRI examination is compromised by motion artifact and body habitus. 2. No high-grade central or foraminal stenosis. 3. L3-4: Small central disc protrusion and facet arthritis. Mild central, suba rticular recess and RIGHT foraminal stenosis. Disc contacts the traversing L4 n erve roots in the RIGHT exiting L3 nerve root. 4. L4-5: Mild subarticular recess and foraminal stenosis due to disc and facet arthritis. Mild disc contact on the traversing L5 nerve roots. LEFT foraminal stenosis greater than RIGHT. 5. L2-3: Mild central and subarticular recess and RIGHT foraminal stenosis.
== END 2024-09-18 15:15 | disposition home or self-care (01) ==
PROVIDERS: PCP Family Medicine; Visit Provider Orthopaedic Surgery
DX: M54.9 Dorsalgia, unspecified (principal); M47.816 Spondylosis without myelopathy or radiculopathy, lumbar region; M51.16 Intervertebral disc disorders with radiculopathy, lumbar region; M48.061 Spinal stenosis, lumbar region without neurogenic claudication
CPT/HCPCS: 72148

== ENCOUNTER → 2024-09-25 13:45 | Outpatient (BNVA) | payer OTHER, MEDICAID, SELFPAY | PROVIDERS: PCP Family Medicine; Visit Provider Student in an Organized Health Care Education/Training Program | DX: M25.562 Pain in left knee (principal); G89.29 Other chronic pain | CPT/HCPCS: 73560; 73565; 99205 ==

== ENCOUNTER → 2024-09-28 09:23 | Outpatient (BNVA) | payer OTHER, MEDICAID, SELFPAY | PROVIDERS: PCP Family Medicine; Visit Provider Student in an Organized Health Care Education/Training Program | DX: L02.416 Cutaneous abscess of left lower limb (principal) | CPT/HCPCS: 99204 ==

== ENCOUNTER → 2024-10-17 08:20 | Outpatient (BNVA) | payer OTHER, MEDICAID, SELFPAY | PROVIDERS: PCP Family Medicine; Visit Provider Student in an Organized Health Care Education/Training Program | DX: M25.562 Pain in left knee (principal); G89.29 Other chronic pain; L02.416 Cutaneous abscess of left lower limb | CPT/HCPCS: 99213 ==

== ENCOUNTER → 2024-10-30 14:45 | Outpatient (BNVA) | payer OTHER, MEDICAID, SELFPAY | PROVIDERS: PCP Family Medicine; Visit Provider Family Medicine | DX: Z11.4 Encounter for screening for human immunodeficiency virus [HIV] (principal); E11.65 Type 2 diabetes mellitus with hyperglycemia; Z79.4 Long term (current) use of insulin; Z11.59 Encounter for screening for other viral diseases | CPT/HCPCS: 83036; 86803; 87806 ==

== ENCOUNTER 2024-11-06 20:00 | Outpatient (CLI) | payer OTHER, MEDICAID, SELFPAY | END 2024-11-06 20:01 | disposition home or self-care (01) | LOC: SLEEP 11-07 05:27 | PROVIDERS: PCP Family Medicine; Referring Provider Family Medicine; Visit Provider Internal Medicine Pulmonary Disease | DX: G47.33 Obstructive sleep apnea (adult) (pediatric) (principal) | CPT/HCPCS: 95810 ==

== ENCOUNTER 2024-11-14 11:00 | Outpatient (CLI) | payer OTHER, MEDICAID, SELFPAY ==
--- NOTE | 2024-11-14 11:15 | CT_ITS ---
WS: [id number] LDCT LUNG CANCER SCREENING HISTORY: smoker; at least 30pk yr hx; screening TECHNIQUE: Axial imaging performed from the apices to 1 cm below the costophrenic angles. Coronal and sagittal reformats are submitted with axial MIP series. All CT scans at [facility] use at least one of these dose optimization techniques: automated exposure control; mA and/or kV adjustment per patient size (includes targeted exams where dose is matched to clinical indication); or iterative reconstruction. DLP: 234.01 mGy.cm DIvol: Mean CTDIvol: 5.60 (mGy) COMPARISON: None available. Diagnostic quality: Satisfactory Lungs: Mild pulmonary hyperexpansion. There are a few scattered tiny micronodules in the periphery of each lung. There is no mass. No endobronchial lesions. No pneumonia. Heart: Normal size heart with no pericardial effusion.. Other findings: Mild pulmonary artery enlargement. Mild atherosclerosis aorta. No adenopathy. Mild thyromegaly extends substernal, likely a goiter. No adrenal mass. Mild scoliosis thoracic spine. CT/CT lung screening [id number] IMPRESSION: LUNG-RADS: 2-Benign Appearance or Behavior FOLLOW UP: 12 Month: Continue annual screening with LDCT OTHER FINDINGS (S MODIFIER): None.
== END 2024-11-14 11:01 | disposition home or self-care (01) ==
LOC: RAD 11:01
PROVIDERS: PCP Family Medicine; Visit Provider Family Medicine
DX: Z12.2 Encounter for screening for malignant neoplasm of respiratory organs (principal); F17.210 Nicotine dependence, cigarettes, uncomplicated
CPT/HCPCS: 71271

== ENCOUNTER 2024-12-04 19:54 | Outpatient (CLI) | payer OTHER, MEDICAID, SELFPAY | END 2024-12-04 19:55 | disposition home or self-care (01) | LOC: SLEEP 19:56 | PROVIDERS: PCP Family Medicine; Referring Provider Family Medicine; Visit Provider Internal Medicine Pulmonary Disease | DX: G47.33 Obstructive sleep apnea (adult) (pediatric) (principal) | CPT/HCPCS: 95811 ==